=== PATIENT | female | born 1965 | race Caucasian/White ===

== ENCOUNTER 2020-04-14 11:52 | Outpatient (REF) | payer OTHER, SELFPAY ==
[2020-04-14 14:16] LABS: Alanine Aminotransferase 48 U/L (0-31); Albumin Level 4.8 g/dL (3.5-5.0); Alkaline Phosphatase 100 U/L (39-117); Aspartate Amino Transferase 38 U/L (5-31); Bilirubin Direct 0.2 mg/dL (0.0-0.5); Bilirubin Total 0.6 mg/dL (0.0-1.0); Total Protein 7.5 g/dL (6.5-8.0)
[2020-04-14 14:37] LABS: TSH reflex Free T4 3.61 uIU/mL (0.32-4.0); Vitamin D 25-OH Total 42.3 ng/mL (>30)
== END 2020-04-14 11:53 | disposition home or self-care (01) ==
LOC: HO.HMGCLDS 11:52
PROVIDERS: PCP Internal Medicine; Visit Provider Internal Medicine
DX: Z00.00 Encounter for general adult medical examination without abnormal findings (principal); E55.9 Vitamin D deficiency, unspecified; E03.9 Hypothyroidism, unspecified; Z78.0 Asymptomatic menopausal state; I10 Essential (primary) hypertension
CPT/HCPCS: 36415; 80076; 82306; 84443

== ENCOUNTER → 2020-04-23 12:55 | Outpatient (REF) | payer OTHER, SELFPAY ==
--- NOTE | 2020-04-23 13:01 | ECG_ITS ---
Hook-up date: 2020-04-23 13:22:00 Duration: 41:57:00 Test Indications: PALPITATIONS Medications: 50263 QRS complexes 30 Ventricular ectopics which represent <1 % of total QRS comp. 167 Supraventricular ectopics which represent <1 % of total QRS comp. * Paced QRS complexs which represent % of total QRS comp. VENTRICULAR ECTOPY 30 Isolated 0 Bigeminal Cycles 0 Couplets 0 Runs 0 Beats in Runs * Beats LONGEST at * BPM at :: -- * Beats FASTEST at * BPM at :: -- SUPRAVENTRICULAR ECTOPY 96 Isolated 13 Couplets 10 Runs 45 Beats in Runs 7 Beats LONGEST at 131 BPM at 20:16:25 2020-04-23 4 Beats FASTEST at 174 BPM at 04:59:28 2020-04-24 HEART RATES 34 MIN at 00:30:53 2020-04-24 58 AVG 130 MAX at 12:11:51 2020-04-24 LONGEST RR 2.0080 secs at 01:27:42 2020-04-24 S-T LEVELS Channel 1 - 128 mm at 13:22:00 2020-04-23 - 128 mm at 13:22:00 2020-04-23 Channel 2 - 128 mm at 13:22:00 2020-04-23 - 128 mm at 13:22:00 2020-04-23 Channel 3 - 128 mm at 03:24:11 -- - 128 mm at 03:24:11 Basic rhythm Normal sinus rhythm No long pauses Frequent Sinus bradycardia , HR < 60 bpm 67% of total time Rare Premature ventricular complexes Occasional Premature atrial complexes Frequent short bursts of SVE, 4-7 beats s/o of PAT or SVT Patient did not report any symptoms in the diary Referred By: Carol Dewitt Overread By: CHAO MCCONNELL MD
== END ==
LOC: HO.CARD 12:55
PROVIDERS: PCP Internal Medicine; Visit Provider Internal Medicine
DX: R00.2 Palpitations (principal)
CPT/HCPCS: 93225; 93226

== ENCOUNTER 2020-05-21 07:21 | Outpatient (REF) | payer OTHER, SELFPAY ==
[2020-05-21 12:03] LABS: Alanine Aminotransferase 23 U/L (0-31); Aspartate Amino Transferase 33 U/L (5-31)
== END 2020-05-21 07:22 | disposition home or self-care (01) ==
LOC: HO.HMGCLDS 07:21
PROVIDERS: PCP Internal Medicine; Visit Provider Internal Medicine
DX: R74.01 Elevation of levels of liver transaminase levels (principal)
CPT/HCPCS: 36415; 84450; 84460

== ENCOUNTER 2020-08-27 07:33 | Outpatient (REF) | payer OTHER, SELFPAY ==
[2020-08-27 12:08] LABS: TSH reflex Free T4 0.83 uIU/mL (0.32-4.0)
[2020-08-27 12:19] LABS: Alanine Aminotransferase 39 U/L (0-31); Albumin Level 4.4 g/dL (3.5-5.0); Alkaline Phosphatase 99 U/L (39-117); Anion Gap 12 (12-20); Aspartate Amino Transferase 36 U/L (5-31); Bilirubin Total 0.4 mg/dL (0.0-1.0); Blood Urea Nitrogen 16 mg/dL (9-16); Calcium 9.1 mg/dL (8.4-10.2); Carbon Dioxide 27 mmol/L (22-29); Chloride 105 mmol/L (96-108); Estimated Glomerular Filt Rate > 60; Glucose Fasting 83 mg/dL (60-99); Potassium 4.5 mmol/L (3.3-5.1); Sodium 139 mmol/L (135-145); Total Protein 6.8 g/dL (6.5-8.0)
== END 2020-08-27 07:34 | disposition home or self-care (01) ==
LOC: HO.HMGCLDS 07:33
PROVIDERS: PCP Internal Medicine; Visit Provider Internal Medicine
DX: I10 Essential (primary) hypertension (principal); E55.9 Vitamin D deficiency, unspecified; R74.01 Elevation of levels of liver transaminase levels; Z78.0 Asymptomatic menopausal state
CPT/HCPCS: 36415; 80053; 84443

== ENCOUNTER 2021-02-16 11:33 | Outpatient (REF) | payer OTHER, SELFPAY ==
[2021-02-16 12:22] LABS: Influenza A PCR NEGATIVE (Negative); Influenza B PCR NEGATIVE (Negative); Resp Syncy Virus RNA Qual PCR NEGATIVE (Negative); SARS COV2 PCR INHOUSE NEGATIVE (Negative)
== END 2021-02-16 11:34 | disposition home or self-care (01) ==
LOC: HO.LNP 11:33
PROVIDERS: Visit Provider Internal Medicine
DX: R43.9 Unspecified disturbances of smell and taste (principal); Z20.822 Contact with and (suspected) exposure to COVID-19
CPT/HCPCS: 0241U

== ENCOUNTER 2021-04-08 07:21 | Outpatient (REF) | payer OTHER, SELFPAY ==
[2021-04-08 11:31] LABS: Hematocrit 42.7 % (37.0-47.0); Hemoglobin 13.8 g/dl (12.0-16.0); Mean Corpuscular HGB Conc 32.3 g/dl (31.0-35.0); Mean Corpuscular Volume 89.7 fL (80.0-98.0); Platelet Count 138 X10*3/uL (160-400); Red Blood Count 4.76 X10*6/uL (4.20-5.50); Red Cell Distribution Width 13.1 % (11.0-16.0); White Blood Count 5.1 X10*3/uL (4.8-10.8)
[2021-04-08 13:22] LABS: TSH reflex Free T4 0.54 uIU/mL (0.32-4.0); Vitamin D 25-OH Total 36.5 ng/mL (>30)
[2021-04-08 13:39] LABS: Alanine Aminotransferase 31 U/L (0-31); Albumin Level 4.5 g/dL (3.5-5.0); Alkaline Phosphatase 89 U/L (39-117); Anion Gap 11 (12-20); Aspartate Amino Transferase 35 U/L (5-31); Bilirubin Total 0.9 mg/dL (0.0-1.0); Carbon Dioxide 29 mmol/L (22-29); Chloride 101 mmol/L (96-108); Cholesterol 204 mg/dL; Estimated Glomerular Filt Rate > 60; Glucose Fasting 90 mg/dL (60-99); HDL Cholesterol 71 mg/dL; LDL Cholesterol Calculated 123 mg/dl; Sodium 136 mmol/L (135-145); Triglycerides 54 mg/dL
[2021-04-08 14:57] LABS: Blood Urea Nitrogen 15 mg/dL (9-16); Calcium 9.4 mg/dL (8.4-10.2)
== END 2021-04-08 07:22 | disposition home or self-care (01) ==
LOC: HO.HMGCLDS 07:21
PROVIDERS: Visit Provider Internal Medicine
DX: Z00.00 Encounter for general adult medical examination without abnormal findings (principal); E03.9 Hypothyroidism, unspecified; E55.9 Vitamin D deficiency, unspecified; I10 Essential (primary) hypertension; R74.01 Elevation of levels of liver transaminase levels
CPT/HCPCS: 36415; 80053; 80061; 82306; 84443; 85027

== ENCOUNTER 2021-12-04 11:58 | Outpatient (REF) | payer OTHER, SELFPAY ==
--- NOTE | ~2021-12-04 | XR_ITS ---
EXAMINATION: XR CHEST CLINICAL INFORMATION: Fever COMPARISON: None TECHNIQUE: 2 views of the chest were obtained. FINDINGS: No significant abnormality is noted involving the heart, lungs, mediastinum, bony thorax or soft tissues. XR/XR chest 2V IMPRESSION: Unremarkable examination.
[2021-12-04 13:53] LABS: Baso%MD 1.1 %; Eos%MD 0.8 %; Hematocrit 40.1 % (37.0-47.0); IG%MD 0.3 %; Mean Corpuscular HGB Conc 32.4 g/dl (31.0-35.0); Mean Corpuscular Volume 86.4 fL (80.0-98.0); Mono%MD 7.2 %; Neut%MD 62.6 %; Platelet Count 229 X10*3/uL (160-400); Red Blood Count 4.64 X10*6/uL (4.20-5.50); Red Cell Distribution Width 13.2 % (11.0-16.0); White Blood Count 7.8 X10*3/uL (4.8-10.8)
[2021-12-04 14:00] LABS: Appearance Urine Clear; Color Urine Yellow; Glucose Urine UA Negative (Negative); Leukocyte Esterase Urine Negative (Negative); Nitrite Urine Negative (Negative); Specific Gravity - Urine <= 1.005 (1.005-1.025); Urine Blood Negative (Negative); Urine Ketones Negative (Negative); Urine Protein Negative (Neg-Trace)
[2021-12-04 14:03] LABS: Alanine Aminotransferase 70 U/L (0-31); Albumin Level 4.5 g/dL (3.5-5.0); Alkaline Phosphatase 155 U/L (39-117); Anion Gap 16 (12-20); Aspartate Amino Transferase 35 U/L (5-31); Bilirubin Total 0.5 mg/dL (0.0-1.0); Blood Urea Nitrogen 15 mg/dL (9-16); C Reactive Protein 0.19 mg/dL (< or = 0.50); Calcium 9.5 mg/dL (8.4-10.2); Carbon Dioxide 26 mmol/L (22-29); Chloride 101 mmol/L (96-108); Estimated Glomerular Filt Rate > 60; Glucose Random 83 mg/dL (60-115); Potassium 4.1 mmol/L (3.3-5.1); Sodium 139 mmol/L (135-145); Total Protein 7.3 g/dL (6.5-8.0)
[2021-12-04 14:06] LABS: Bacteria Urine None Seen (None Seen); Hyaline Casts Urine 0-2 /LPF (0-2); RBC Urine 0-2 /HPF (0-2); Squamous Epithelial Cell Urine 0-2 /HPF (0-2); WBC Urine 0-5 /HPF (0-5)
[2021-12-04 14:16] LABS: Band Neutrophils Percent 2 % (3-5); Eosinophils Absolute Manual 0.1 X10*3/uL (0.0-0.4); Eosinophils Percent Manual 1 % (0-4); Lymphocytes Absolute Manual 1.8 X10*3/uL (1.2-4.9); Lymphocytes Percent Manual 23 % (20-40); Monocytes Absolute Manual 0.5 X10*3/uL (0.1-1.2); Monocytes Percent Manual 7 % (2-11); Neutrophils Absolute Manual 5.4 X10*3/uL (2.0-8.3); Neutrophils Percent Manual 67 % (45-73)
[2021-12-04 14:17] LABS: Platelet Estimate NORMAL (NORMAL); Platelet Morphology Comment NORMAL; RBC Morphology NORMAL
[2021-12-04 14:28] LABS: Erythrocyte Sedimentation Rate 12 MM/HR (0-20)
[2021-12-07 15:07] LABS: IgA 319 mg/dL (47-310); IgG 915 mg/dL (600-1640); IgM 84 mg/dL (50-300)
[2021-12-07 21:07] LABS: Lyme Abs Screen <0.90 index
[2021-12-10 14:07] LABS: Babesia IgG <1:64 titer (<1:64); Babesia IgM <1:20 titer (<1:20)
[2021-12-15 08:12] LABS: A. Phagocytophilum Ab IgG <1:64 (<1:64); A. Phagocytophilum Ab IgM <1:20 (<1:20); E. Chaffeensis Ab IgG <1:64 (<1:64); E. Chaffeensis Ab IgM <1:20 (<1:20)
== END 2021-12-04 11:59 | disposition home or self-care (01) ==
LOC: HO.HMGCLDS 11:58
PROVIDERS: PCP Internal Medicine; Visit Provider Internal Medicine
DX: R50.9 Fever, unspecified (principal)
CPT/HCPCS: 36415; 71046; 80053; 81001; 82784; 85007; 85027; 85652; 86140; 86334; 86617; 86618; 86666; 86753; 87040; 87086

== ENCOUNTER 2022-01-01 07:28 | Outpatient (REF) | payer OTHER, SELFPAY ==
[2022-01-04 05:00] LABS: HBS Num1 2.05 mIU/mL (0-7.99); HBc Num1 0.07 S/CO (0.00-0.79); HBsAGNum1 0.21 S/CO (0.00-0.99); Hepatitis B Core Antibody Nonreactive (Nonreactive); Hepatitis B Surface Antigen Negative (Negative); ~HepC Num1 0.12 S/CO (0.00-0.79); ~Hepatitis B Surface Antibody NONREACTIVE (Nonreactive); ~Hepatitis C Antibody Nonreactive (Nonreactive)
[2022-01-04 22:51] LABS: Ceruloplasmin 33 mg/dL (18-53)
[2022-01-05 15:47] LABS: Anti Nuclear Antibody Screen POSITIVE (NEGATIVE)
[2022-01-06 13:12] LABS: Liver Kidney Microsomal Ab <=20.0 U (<=20.0)
[2022-01-15 15:16] LABS: A1A Clinical Indication NG; A1A Referring Physician NG
== END 2022-01-01 07:29 | disposition home or self-care (01) ==
LOC: HO.HMGCLDS 07:28
PROVIDERS: PCP Internal Medicine; Visit Provider Internal Medicine
DX: R79.89 Other specified abnormal findings of blood chemistry (principal)
CPT/HCPCS: 36415; 81256; 82104; 82390; 86038; 86039; 86376; 86704; 86706; 86803; 87340

== ENCOUNTER 2022-04-16 07:24 | Outpatient (REF) | payer OTHER, SELFPAY ==
[2022-04-16 12:06] LABS: Hemoglobin 14.3 g/dl (12.0-16.0); Mean Corpuscular HGB Conc 32.5 g/dl (31.0-35.0); Mean Corpuscular Hemoglobin 28.8 pg (27.0-33.0); Mean Corpuscular Volume 88.5 fL (80.0-98.0); Mean Platelet Volume 14.2 fL (9.4-12.3); Platelet Count 152 X10*3/uL (160-400); Red Blood Count 4.97 X10*6/uL (4.20-5.50); Red Cell Distribution Width 13.4 % (11.0-16.0); White Blood Count 6.1 X10*3/uL (4.8-10.8)
[2022-04-16 12:38] LABS: Alanine Aminotransferase 22 U/L (0-31); Albumin Level 4.4 g/dL (3.5-5.0); Alkaline Phosphatase 89 U/L (39-117); Anion Gap 15 (12-20); Aspartate Amino Transferase 26 U/L (5-31); Bilirubin Total 0.7 mg/dL (0.0-1.0); Blood Urea Nitrogen 14 mg/dL (9-16); Calcium 9.1 mg/dL (8.4-10.2); Carbon Dioxide 25 mmol/L (22-29); Chloride 101 mmol/L (96-108); Cholesterol 236 mg/dL; Estimated Glomerular Filt Rate > 60; Glucose Fasting 86 mg/dL (60-99); HDL Cholesterol 79 mg/dL; LDL Cholesterol Calculated 143 mg/dl; Potassium 4.6 mmol/L (3.3-5.1); Sodium 136 mmol/L (135-145); Total Protein 6.9 g/dL (6.5-8.0); Triglycerides 74 mg/dL; Vitamin D 25-OH Total 39.1 ng/mL (>30)
== END 2022-04-16 07:25 | disposition home or self-care (01) ==
LOC: HO.HMGCLDS 07:24
PROVIDERS: PCP Internal Medicine; Visit Provider Internal Medicine
DX: Z00.00 Encounter for general adult medical examination without abnormal findings (principal); E55.9 Vitamin D deficiency, unspecified; I10 Essential (primary) hypertension
CPT/HCPCS: 36415; 80053; 80061; 82306; 84443; 85027

== ENCOUNTER 2022-05-10 07:38 | Outpatient (REF) | payer OTHER, SELFPAY ==
[2022-05-10 12:37] LABS: Anion Gap 12 (12-20); Blood Urea Nitrogen 16 mg/dL (9-16); Calcium 9.4 mg/dL (8.4-10.2); Carbon Dioxide 29 mmol/L (22-29); Chloride 102 mmol/L (96-108); Estimated Glomerular Filt Rate > 60; Glucose Random 67 mg/dL (60-115); Potassium 4.2 mmol/L (3.3-5.1); Sodium 139 mmol/L (135-145)
== END 2022-05-10 07:39 | disposition home or self-care (01) ==
LOC: HO.HMGCLDS 07:38
PROVIDERS: PCP Internal Medicine; Visit Provider Internal Medicine
DX: Z00.00 Encounter for general adult medical examination without abnormal findings (principal)
CPT/HCPCS: 36415; 80048

== ENCOUNTER 2022-06-29 07:39 | Outpatient (REF) | payer OTHER, SELFPAY ==
[2022-06-29 11:56] LABS: Anion Gap 14 (12-20); Blood Urea Nitrogen 18 mg/dL (9-16); Calcium 9.1 mg/dL (8.4-10.2); Carbon Dioxide 26 mmol/L (22-29); Chloride 104 mmol/L (96-108); Estimated Glomerular Filt Rate > 60; Glucose Random 78 mg/dL (60-115); Magnesium 2.1 mg/dL (1.6-2.6); Potassium 4.5 mmol/L (3.3-5.1); Sodium 139 mmol/L (135-145)
== END 2022-06-29 07:40 | disposition home or self-care (01) ==
LOC: HO.HMGCLDS 07:39
PROVIDERS: PCP Internal Medicine; Visit Provider Internal Medicine
DX: E83.42 Hypomagnesemia (principal); E03.9 Hypothyroidism, unspecified; I10 Essential (primary) hypertension; R79.89 Other specified abnormal findings of blood chemistry; E87.1 Hypo-osmolality and hyponatremia
CPT/HCPCS: 36415; 80048; 83735

== ENCOUNTER 2022-10-11 07:22 | Outpatient (REF) | payer OTHER, SELFPAY ==
[2022-10-11 11:54] LABS: MANUAL DIFF FLAG NO
[2022-10-11 12:19] LABS: Basophils Absolute Auto 0.1 X10*3/uL (0.0-0.2); Basophils Percent Auto 0.9 % (0-2); Eosinophils Absolute Auto 0.1 X10*3/uL (0.0-0.4); Eosinophils Percent Auto 1.2 % (0-4); Hemoglobin 13.4 g/dl (12.0-16.0); Imm Gran Abs Auto 0.02 X10*3/uL (0.00-0.03); Imm Gran Pct Auto 0.3 % (0.0-0.4); Lymphocytes Absolute Auto 1.9 X10*3/uL (1.2-4.9); Mean Corpuscular HGB Conc 32.7 g/dl (31.0-35.0); Mean Corpuscular Hemoglobin 28.9 pg (27.0-33.0); Mean Corpuscular Volume 88.6 fL (80.0-98.0); Mean Platelet Volume 14.7 fL (9.4-12.3); Monocytes Absolute Auto 0.6 X10*3/uL (0.1-1.2); Monocytes Percent Auto 8.9 % (2-11); Neutrophils Absolute Auto 4.3 x10*3/uL (2.0-8.3); Neutrophils Percent Auto 61.7 % (45-73); Platelet Count 142 X10*3/uL (160-400); Red Blood Count 4.63 X10*6/uL (4.20-5.50); Red Cell Distribution Width 13.3 % (11.0-16.0); White Blood Count 6.9 X10*3/uL (4.8-10.8)
[2022-10-11 12:46] LABS: Alanine Aminotransferase 53 U/L (0-31); Albumin Level 4.2 g/dL (3.5-5.0); Alkaline Phosphatase 91 U/L (39-117); Anion Gap 11 (12-20); Aspartate Amino Transferase 41 U/L (5-31); Bilirubin Total 0.5 mg/dL (0.0-1.0); Blood Urea Nitrogen 15 mg/dL (9-16); Calcium 9.1 mg/dL (8.4-10.2); Carbon Dioxide 27 mmol/L (22-29); Chloride 106 mmol/L (96-108); Cholesterol 199 mg/dL; Estimated Glomerular Filt Rate > 60; Glucose Fasting 82 mg/dL (60-99); HDL Cholesterol 77 mg/dL; LDL Cholesterol Calculated 114 mg/dl; Potassium 4.4 mmol/L (3.3-5.1); Sodium 140 mmol/L (135-145); Triglycerides 42 mg/dL
== END 2022-10-11 07:23 | disposition home or self-care (01) ==
LOC: HO.HMGCLDS 07:22
PROVIDERS: PCP Internal Medicine; Visit Provider Internal Medicine
DX: E03.9 Hypothyroidism, unspecified (principal); E55.9 Vitamin D deficiency, unspecified; R79.89 Other specified abnormal findings of blood chemistry; I10 Essential (primary) hypertension
CPT/HCPCS: 36415; 80053; 80061; 85025

== ENCOUNTER 2022-10-19 08:27 | Outpatient (AMB) | payer OTHER, SELFPAY ==
[2022-10-19 08:38] VITALS: BP 120/66; PULSE 89; O2SAT 99; BMI 23.3
--- NOTE | 2022-10-19 08:38 | MHC.PC.OV ---
Vital Signs 10/19/22 08:38 Height 5 ft 5 in Weight 140 lb BMI 23.3 BP 120/66 Blood Pressure Location Lt brachial Position Sitting Pulse 89 Pulse Source Pulse Oximeter Pulse Oximetry (%) 99 Oxygen Delivery Method Room Air Intake Visit Reasons: 6M follow up Intake Note: Pt is here today for 6 months follow up visit. Allergies penicillamine Adverse Reaction (Unknown, Verified 10/19/22 08:40) headache, hydrochlorothiazide Adverse Reaction (Verified 10/19/22 08:40) hyponatremia Medication List - Last Reconciled 10/19/22 by Carol Dewitt MD levothyroxine 75 mcg PO DAILY nifedipine ER 60 mg PO DAILY Tobacco use date assessed: 07/09/22 Dental Screening Dental Screen Date: 10/19/22 Did you have a dental visit in the last 12 months?: Yes Did you have a dental problem in the last 6 months where you did not have access to dental care?: No Was dental information given to patient?: Patient has dentist HPI 6M follow up HPI Details Patient presents for the follow-up on hypertension and hyperlipidemia. [facility] Medical History Annual physical exam Chronic anxiety Elevated AST (SGOT) HTN (hypertension) Hypothyroidism Normal breast exam Normal pelvic exam Palpitations Panic attack Postmenopausal Renal angiolipoma Vitamin D deficiency Surgical History H/O colonoscopy Family History Father No problems noted. Mother No problems noted. Sister No problems noted. 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 How often do you have a drink containing alcohol?: Monthly or less 2. How many drinks containing alcohol do you have on a typical day when you are drinking?: 1 or 2 3. How often do you have six or more drinks on one occasion?: Never Total Score: 1 BELEN-7 AMB Questionnaire BELEN-7 Date BELEN - 7 assessed: 04/23/22 Feeling nervous, anxious, or on edge: 0 = Not at all Not being able to stop or control worryin = Not at all Worrying too much about different things: 0 = Not at all Trouble relaxin = Not at all Being so restless that it is hard to sit still: 0 = Not at all Becoming easily annoyed or irritable: 0 = Not at all Feeling afraid as if something awful might happen: 0 = Not at all Total BELEN-7 score (0-4 normal; 5-9 mild; 10-14 moderate; 15-21 severe): 0 Source: Developed by Drs. Yusuf Palacios, Jennifer Rivera, Toi Figueroa and colleagues, with an educational clyde from [employer]. Review of Systems Const All systems reviewed & are unremarkable except as noted in HPI and below Reports no additional complaints Eyes Reports no additional complaints ENT Reports no additional complaints Card Reports no additional complaints Resp Reports no additional complaints GI Reports no additional complaints Reports no additional complaints Physical exam (Primary Care) Vital Signs: Last Vital Signs Pulse 89 10/19/22 08:38 BP 138/66 10/19/22 08:38 Pulse Ox 99 10/19/22 08:38 Oxygen Delivery Method Room Air 10/19/22 08:38 BMI result Body Mass Index 23.3 Tobacco/Smoking Status: Tobacco use Status Tobacco use date assessed 07/09/22 10/19/22 08:43 Patient Tobacco Use Status Former Tobacco user 10/19/22 08:43 e-Cigarette/Vaping Use Never Used 10/19/22 08:43 Thrive Assessment: Date of Thrive Assessment Date Thrive assessed 04/23/22 10/19/22 08:43 Const General: no acute distress HENMT Head: Yes normal to inspection Eyes General: appearance normal, both eyes and all related structures Neck Neck: Yes no lymphadenopathy and Yes supple Resp Effort & Inspection: normal respiratory effort Auscultation: clear to auscultation bilaterally Cardio Rhythm: regular rhythm Heart sounds: S1 normal heart sound present and S2 normal heart sound present Assessment and Plan Assessment & Plan (1) Elevated LFTs: Comment: Borderline, normal liver ultrasound 2020 Code(s): R79.89 - Other specified abnormal findings of blood chemistry Plan: Obtain liver ultrasound and monitor liver function test. Patient was advised to avoid [id number] NSAIDs Tylenol and alcohol follow-up in 6 months with a fasting labs before (2) Renal angiolipoma: Comment: R kidney 08/2020 US, recheck in 09/18 unchanged, benign Code(s): D1 - Benign lipomatous neoplasm of kidney Plan: Check renal ultrasound (3) HTN (hypertension): Code(s): I10 - Essential (primary) hypertension Plan: Continue nifedipine, return for physical in 6 months Orders: Orders US abdomen amador w elastography Today R79.89 - Other specified abnormal findings of blood chemistry US renal BI Today . - Benign lipomatous neoplasm of kidney Comprehensive Terry. Panel Fast 6 Months D17. - Benign lipomatous neoplasm of kidney, E78.5 - Hyperlipidemia, unspecified, I10 - Essential (primary) hypertension, R74.01 - Elevation of levels of liver transaminase levels, R79.89 - Other specified abnormal findings of blood chemistry Lipid Panel 6 Months D17. - Benign lipomatous neoplasm of kidney, E78.5 - Hyperlipidemia, unspecified, I10 - Essential (primary) hypertension, R74.01 - Elevation of levels of liver transaminase levels, R79.89 - Other specified abnormal findings of blood chemistry TSH reflex Free T4 6 Months D17. - Benign lipomatous neoplasm of kidney, E78.5 - Hyperlipidemia, unspecified, I10 - Essential (primary) hypertension, R74.01 - Elevation of levels of liver transaminase levels, R79.89 - Other specified abnormal findings of blood chemistry Complete Blood Count Auto Diff 6 Months D17. - Benign lipomatous neoplasm of kidney, E78.5 - Hyperlipidemia, unspecified, I10 - Essential (primary) hypertension, R74.01 - Elevation of levels of liver transaminase levels, R79.89 - Other specified abnormal findings of blood chemistry Liver Kidney Microsomal Ab 6 Months - Benign lipomatous neoplasm of kidney, E78.5 - Hyperlipidemia, unspecified, I10 - Essential (primary) hypertension, R74.01 - Elevation of levels of liver transaminase levels, R79.89 - Other specified abnormal findings of blood chemistry Hepatitis A,B,C Profile 6 Months - Benign lipomatous neoplasm of kidney, E78.5 - Hyperlipidemia, unspecified, I10 - Essential (primary) hypertension, R74.01 - Elevation of levels of liver transaminase levels, R79.89 - Other specified abnormal findings of blood chemistry Coding Level of Care Code Est Pt Level 3 (48071) Diagnoses Elevated LFTs R7.89 Renal angiolipoma HTN (hypertension) I10
== END 2022-10-19 09:36 | disposition home or self-care (01) ==
PROVIDERS: PCP Internal Medicine; Visit Provider Internal Medicine
DX: R79.89 Other specified abnormal findings of blood chemistry (principal); D17.71 Benign lipomatous neoplasm of kidney; I10 Essential (primary) hypertension
CPT/HCPCS: 99213

== ENCOUNTER 2023-04-22 07:22 | Outpatient (REF) | payer OTHER, SELFPAY ==
[2023-04-22 10:14] LABS: MANUAL DIFF FLAG NO
[2023-04-22 10:25] LABS: Basophils Absolute Auto 0.1 X10*3/uL (0.0-0.2); Basophils Percent Auto 1.3 % (0-2); Eosinophils Absolute Auto 0.1 X10*3/uL (0.0-0.4); Eosinophils Percent Auto 1.3 % (0-4); Hematocrit 42.7 % (37.0-47.0); Hemoglobin 14.1 g/dl (12.0-16.0); Imm Gran Abs Auto 0.01 X10*3/uL (0.00-0.03); Imm Gran Pct Auto 0.2 % (0.0-0.4); Lymphocytes Absolute Auto 2.1 X10*3/uL (1.2-4.9); Lymphocytes Percent Auto 39.3 % (20-40); Mean Corpuscular Hemoglobin 28.8 pg (27.0-33.0); Mean Corpuscular Volume 87.3 fL (80.0-98.0); Mean Platelet Volume 14.2 fL (9.4-12.3); Monocytes Absolute Auto 0.5 X10*3/uL (0.1-1.2); Monocytes Percent Auto 9.4 % (2-11); Neutrophils Absolute Auto 2.5 x10*3/uL (2.0-8.3); Neutrophils Percent Auto 48.5 % (45-73); Platelet Count 178 X10*3/uL (160-400); Red Blood Count 4.89 X10*6/uL (4.20-5.50); Red Cell Distribution Width 12.8 % (11.0-16.0); White Blood Count 5.2 X10*3/uL (4.8-10.8)
[2023-04-22 11:16] LABS: Alanine Aminotransferase 24 U/L (0-31); Albumin Level 4.2 g/dL (3.5-5.0); Alkaline Phosphatase 99 U/L (39-117); Anion Gap 15 (12-20); Aspartate Amino Transferase 27 U/L (5-31); Bilirubin Total 0.4 mg/dL (0.0-1.0); Blood Urea Nitrogen 12 mg/dL (9-16); Calcium 9.2 mg/dL (8.4-10.2); Carbon Dioxide 25 mmol/L (22-29); Chloride 101 mmol/L (96-108); Cholesterol 212 mg/dL (<200); Estimated Glomerular Filt Rate > 60; Glucose Fasting 82 mg/dL (60-99); HDL Cholesterol 72 mg/dL (>40); LDL Cholesterol Calculated 129 mg/dL (<100); Potassium 3.9 mmol/L (3.3-5.1); Sodium 137 mmol/L (135-145); Total Protein 7.2 g/dL (6.5-8.0); Triglycerides 57 mg/dL (<150)
[2023-04-22 11:20] LABS: TSH reflex Free T4 1.15 uIU/mL (0.32-4.0)
[2023-04-22 11:22] LABS: HBS Num1 0.46 mIU/mL (0-7.99); HBsAGNum1 0.66 S/CO (0.00-0.99); Hepatitis A Antibody IgM 0.16 Index (0-0.79); Hepatitis B Core Antibody Nonreactive (Nonreactive); Hepatitis B Surface Antigen Negative (Negative); ~HepC Num1 0.09 S/CO (0.00-0.79); ~Hepatitis A Antibody IgM Nonreactive (Nonreactive); ~Hepatitis B Surface Antibody NONREACTIVE (Nonreactive); ~Hepatitis C Antibody Nonreactive (Nonreactive)
[2023-04-27 05:58] LABS: Liver Kidney Microsomal Ab <=20.0 U (<=20.0)
== END 2023-04-22 07:23 | disposition home or self-care (01) ==
LOC: HO.HMGCLDS 07:22
PROVIDERS: PCP Internal Medicine; Visit Provider Internal Medicine
DX: R74.01 Elevation of levels of liver transaminase levels (principal); I10 Essential (primary) hypertension; D17.71 Benign lipomatous neoplasm of kidney; R79.89 Other specified abnormal findings of blood chemistry; E78.5 Hyperlipidemia, unspecified
CPT/HCPCS: 36415; 80053; 80061; 84443; 85025; 86376; 86704; 86706; 86709; 86803; 87340

== ENCOUNTER 2023-04-29 07:53 | Outpatient (AMB) | payer OTHER, SELFPAY ==
[2023-04-29 07:56] VITALS: BP 136/80; PULSE 58; O2SAT 99; BMI 23.6
--- NOTE | 2023-04-29 07:56 | MHC.PC.OV ---
Vital Signs 04/29/23 07:56 Height 5 ft 5 in Weight 142 lb BMI 23.6 BP 136/80 Blood Pressure Location Lt brachial Position Sitting Pulse 58 Pulse Source Pulse Oximeter Pulse Oximetry (%) 99 Oxygen Delivery Method Room Air Intake Visit Reasons: PE Intake Note: Pt is here today for PE. Allergies penicillamine Adverse Reaction (Unknown, Verified 04/29/23 07:57) headache, hydrochlorothiazide Adverse Reaction (Verified 04/29/23 07:57) hyponatremia Medication List - Last Reconciled 04/29/23 by Carol Dewitt MD levothyroxine 75 mcg PO DAILY nifedipine ER 60 mg PO DAILY nifedipine ER 30 mg PO DAILY Tobacco use date assessed: 04/29/23 Dental Screening Dental Screen Date: 04/29/23 Did you have a dental visit in the last 12 months?: Yes Did you have a dental problem in the last 6 months where you did not have access to dental care?: No Was dental information given to patient?: Patient has dentist HPI PE HPI Details Patient presents for physical. Her was diagnosed with prostate cancer and is going to [place] for 2nd opinion. [facility] Medical History Normal pelvic exam Normal breast exam Renal angiolipoma Elevated AST (SGOT) Palpitations Vitamin D deficiency Postmenopausal Annual physical exam Panic attack Chronic anxiety Hypothyroidism HTN (hypertension) Surgical History H/O colonoscopy Family History Father No problems noted. Mother No problems noted. Sister No problems noted. 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 How often do you have a drink containing alcohol?: Monthly or less 2. How many drinks containing alcohol do you have on a typical day when you are drinking?: 1 or 2 3. How often do you have six or more drinks on one occasion?: Never Total Score: 1 BELEN-7 AMB Questionnaire BELEN-7 Date BELEN - 7 assessed: 04/23/22 Feeling nervous, anxious, or on edge: 0 = Not at all Not being able to stop or control worryin = Not at all Worrying too much about different things: 0 = Not at all Trouble relaxin = Not at all Being so restless that it is hard to sit still: 0 = Not at all Becoming easily annoyed or irritable: 0 = Not at all Feeling afraid as if something awful might happen: 0 = Not at all Total BELEN-7 score (0-4 normal; 5-9 mild; 10-14 moderate; 15-21 severe): 0 Source: Developed by Drs. Yusuf Palacios, Jennifer Rivera, Toi Figueroa and colleagues, with an educational clyde from [employer]. Review of Systems Const All systems reviewed & are unremarkable except as noted in HPI and below Reports no additional complaints Eyes Reports no additional complaints ENT Reports no additional complaints Card Reports no additional complaints Resp Reports no additional complaints GI Reports no additional complaints Reports no additional complaints Physical exam (Primary Care) Vital Signs: Last Vital Signs Pulse 58 04/29/23 07:56 BP 136/80 04/29/23 07:56 Pulse Ox 99 04/29/23 07:56 Oxygen Delivery Method Room Air 04/29/23 07:56 BMI result Body Mass Index 23.6 Tobacco/Smoking Status: Tobacco use Status Tobacco use date assessed 04/29/23 04/29/23 07:59 Patient Tobacco Use Status Former Tobacco user 04/29/23 07:59 e-Cigarette/Vaping Use Never Used 04/29/23 07:59 Thrive Assessment: Date of Thrive Assessment Date Thrive assessed 04/23/22 04/29/23 07:59 Const General: no acute distress HENMT Head: Yes normal to inspection Ears: hearing grossly normal bilaterally General nose exam: Normal external nose present Face and sinus: Yes normal facial exam Mouth: Normal oral and palatal mucosa present Eyes General: appearance normal, both eyes and all related structures Neck Neck: Yes no lymphadenopathy and Yes supple Resp Effort & Inspection: normal respiratory effort Auscultation: clear to auscultation bilaterally Cardio Rhythm: regular rhythm Heart sounds: S1 normal heart sound present and S2 normal heart sound present GI Inspection: Yes normal to inspection Palpation (GI): Soft to palpation Percussion: Yes normal to percussion Auscultation: normal bowel sounds Assessment and Plan Assessment & Plan (1) Hyperlipidemia: Code(s): E78.5 - Hyperlipidemia, unspecified Plan: Continue low-cholesterol diet (2) HTN (hypertension): Code(s): I10 - Essential (primary) hypertension Plan: Increase nifedipine to 90 mg follow-up in 2 months (3) Annual physical exam: Code(s): Z00.00 - Encounter for general adult medical examination without abnormal findings Plan: Well-balanced diet regular physical activity discussed with the patient. She is up-to-date with the mammogram and colonoscopy. Patient will check with her home records when was last time she had DEXA (4) Hypothyroidism: Code(s): E03.9 - Hypothyroidism, unspecified Plan: Continue levothyroxine Medications: New nifedipine ER take with Nifedipine 60 mg 30 mg PO DAILY 90 tabs 1RF Coding Level of Care Code Est Pt Prev Care 40-64y(85864) Diagnoses Hyperlipidemia E78.5 HTN (hypertension) I10 Annual physical exam Z00.00 Hypothyroidism E03.9
== END 2023-04-29 08:32 | disposition home or self-care (01) ==
PROVIDERS: PCP Internal Medicine; Visit Provider Internal Medicine
DX: E78.5 Hyperlipidemia, unspecified (principal); I10 Essential (primary) hypertension; Z00.00 Encounter for general adult medical examination without abnormal findings; E03.9 Hypothyroidism, unspecified
CPT/HCPCS: 99396

== ENCOUNTER 2023-07-14 08:55 | Outpatient (AMB) | payer OTHER, SELFPAY ==
--- NOTE | 2023-07-14 08:58 | MHC.PC.OV ---
Vital Signs 07/14/23 08:59 Height 5 ft 5 in Weight 140 lb BMI 23.3 BP 139/88 Blood Pressure Location Lt brachial Position Sitting Pulse 66 Pulse Source Pulse Oximeter Pulse Oximetry (%) 99 Oxygen Delivery Method Room Air Intake Visit Reasons: Follow Up Intake Note: Pt is here today for a follow up visit on BP. Allergies penicillamine Adverse Reaction (Unknown, Verified 07/14/23 09:01) headache, hydrochlorothiazide Adverse Reaction (Verified 07/14/23 09:01) hyponatremia Medication List - Last Reconciled 07/14/23 by Carol Dewitt MD levothyroxine 75 mcg PO DAILY nifedipine ER 60 mg PO DAILY nifedipine ER 30 mg PO DAILY valsartan 80 mg PO DAILY Tobacco use date assessed: 07/14/23 Dental Screening Dental Screen Date: 04/29/23 HPI Follow Up HPI Details Patient presents for the follow-up of hypertension. She has been under lot of stress related to her diagnosed with prostate CA. Patient increase nifedipine to 90 mg a day but there is no change in her blood pressure readings. She denies headaches chest pain shortness for breath PFSH Medical History Normal pelvic exam Normal breast exam Renal angiolipoma Elevated AST (SGOT) Palpitations Vitamin D deficiency Postmenopausal Annual physical exam Panic attack Chronic anxiety Hypothyroidism HTN (hypertension) Surgical History H/O colonoscopy Family History Father No problems noted. Mother No problems noted. Sister No problems noted. 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 1. Little interest or pleasure in doing things: not at all 2. Feeling down, depressed, or hopeless: not at all 3. Trouble falling or staying asleep, or sleeping too much: not at all 4. Feeling tired or having little energy: not at all 5. Poor appetite or overeating: not at all 6. Feeling bad about yourself - or that you are a failure or have let yourself or your family down: not at all 7. Trouble concentrating on things, such as reading the newspaper or watching television: not at all 8. Moving or speaking so slowly that other people could have noticed. Or the opposite - being so fidgety or restless that you have been moving around a lot more than usual: not at all 9. Thoughts that you would be better off or of hurting yourself in some way: not at all Total score: 0 Depression Screening Interpretation: Negative Depression Screening Done: Yes Source: Developed by Drs. Yusuf Palacios, Jennifer Rivera, Toi Figueroa and colleagues, with an educational clyde from [employer]. Thrive Questionnaire Date Thrive assessed: 04/23/22 BELEN-7 AMB Questionnaire BELEN-7 Date BELEN - 7 assessed: 07/14/23 Feeling nervous, anxious, or on edge: 0 = Not at all Not being able to stop or control worryin = Not at all Worrying too much about different things: 0 = Not at all Trouble relaxin = Not at all Being so restless that it is hard to sit still: 0 = Not at all Becoming easily annoyed or irritable: 0 = Not at all Feeling afraid as if something awful might happen: 0 = Not at all Total BELEN-7 score (0-4 normal; 5-9 mild; 10-14 moderate; 15-21 severe): 0 Source: Developed by Drs. Yusuf Palacios, Jennifer Rivera, Toi Figueroa and colleagues, with an educational clyde from [employer]. Review of Systems Const All systems reviewed & are unremarkable except as noted in HPI and below Reports no additional complaints Eyes Reports no additional complaints ENT Reports no additional complaints Card Reports no additional complaints Resp Reports no additional complaints GI Reports no additional complaints Reports no additional complaints Physical exam (Primary Care) Vital Signs: Last Vital Signs Pulse 66 07/14/23 08:59 Pulse Ox 99 07/14/23 08:59 Oxygen Delivery Method Room Air 05/16/24 08:59 BMI result Body Mass Index 23.3 Tobacco/Smoking Status: Tobacco use Status Tobacco use date assessed 07/14/23 07/14/23 09:04 Patient Tobacco Use Status Former Tobacco user 07/14/23 09:00 e-Cigarette/Vaping Use Never Used 07/14/23 09:00 PHQ-9: PHQ-9 Score PHQ-9: Total score 0 07/14/23 09:08 Depression Screening Interpretation: Negative Thrive Assessment: Date of Thrive Assessment Date Thrive assessed 04/23/22 07/14/23 09:00 Const General: no acute distress HENMT Head: Yes normal to inspection Mouth: Normal oral and palatal mucosa present Eyes General: appearance normal, both eyes and all related structures Resp Effort & Inspection: normal respiratory effort Auscultation: clear to auscultation bilaterally Cardio Rhythm: regular rhythm Heart sounds: S1 normal heart sound present and S2 normal heart sound present Assessment and Plan Assessment & Plan (1) HTN (hypertension): Code(s): I10 - Essential (primary) hypertension Plan: Valsartan 80 mg will be added to 60 mg of nifedipine. Basic metabolic panel will be change in 2 weeks and patient will follow-up in 3 weeks for blood pressure check. Stress management discussed with the patient. She will continue to follow-up with the counseling and declined medications at present. (2) Hypothyroidism: Code(s): E03.9 - Hypothyroidism, unspecified Plan: Continue levothyroxine Orders: Orders Basic Metabolic Panel 2 Weeks I10 - Essential (primary) hypertension Medications: New valsartan 80 mg PO DAILY 30 tabs 1RF Coding Level of Care Code Est Pt Level 3 (96724) Diagnoses HTN (hypertension) I10 Hypothyroidism E03.9
[2023-07-14 08:59] VITALS: BP 139/88; PULSE 66; O2SAT 99; BMI 23.3
== END 2023-07-14 09:38 | disposition home or self-care (01) ==
PROVIDERS: PCP Internal Medicine; Visit Provider Internal Medicine
DX: I10 Essential (primary) hypertension (principal); E03.9 Hypothyroidism, unspecified
CPT/HCPCS: 99213

== ENCOUNTER 2023-07-28 07:50 | Outpatient (REF) | payer OTHER, SELFPAY ==
[2023-07-28 11:11] LABS: Anion Gap 14 (12-20); Blood Urea Nitrogen 18 mg/dL (9-16); Calcium 8.9 mg/dL (8.4-10.2); Carbon Dioxide 27 mmol/L (22-29); Chloride 104 mmol/L (96-108); Estimated Glomerular Filt Rate > 60; Glucose Random 65 mg/dL (60-115); Potassium 4.2 mmol/L (3.3-5.1); Sodium 141 mmol/L (135-145)
== END 2023-07-28 07:51 | disposition home or self-care (01) ==
LOC: HO.HMGCLDS 07:50
PROVIDERS: PCP Internal Medicine; Visit Provider Internal Medicine
DX: I10 Essential (primary) hypertension (principal)
CPT/HCPCS: 36415; 80048

== ENCOUNTER 2023-08-03 07:43 | Outpatient (AMB) | payer OTHER, SELFPAY ==
[2023-08-03 08:06] VITALS: BP 124/78; PULSE 90; O2SAT 99; BMI 23.0
--- NOTE | 2023-08-03 08:06 | A.OFFPC_ITS ---
Vital Signs 08/03/23 08:06 Height 5 ft 5 in Weight 138 lb BMI 23.0 BP 124/78 Blood Pressure Location Rt brachial Position Sitting Pulse 90 Pulse Source Pulse Oximeter Pulse Oximetry (%) 99 Oxygen Delivery Method Room Air Intake Visit Reasons: 3 week follow up Intake Note: Pt is here today for 3 weeks follow up visit on BP. Allergies penicillamine Adverse Reaction (Unknown, Verified 08/03/23 08:10) headache, hydrochlorothiazide Adverse Reaction (Verified 08/03/23 08:10) hyponatremia Medication List - Last Reconciled 08/03/23 by Carol Dewitt MD levothyroxine 75 mcg PO DAILY nifedipine ER 60 mg PO DAILY nifedipine ER 30 mg PO DAILY valsartan 80 mg PO DAILY Tobacco use date assessed: 07/14/23 Dental Screening Dental Screen Date: 04/29/23 HPI 3 week follow up HPI Details PATIENT PRESENTS FOR THE FOLLOW-UP ON HYPERTENSION BETTER CONTROLLED ON CURRENT MEDICATIONS. Hypothyroidism stable on levothyroxine. Patient has been under stress related to her who was diagnosed with prostate cancer and started radiation and hormonal therapy. [facility] Medical History Normal pelvic exam Normal breast exam Renal angiolipoma Elevated AST (SGOT) Palpitations Vitamin D deficiency Postmenopausal Annual physical exam Panic attack Chronic anxiety Hypothyroidism HTN (hypertension) Surgical History H/O colonoscopy Family History Father No problems noted. Mother No problems noted. Sister No problems noted. 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 Yusuf Palacios, JenniferToi Au and colleagues, with an educational clyde from [email or web address]. Review of Systems Const All systems reviewed & are unremarkable except as noted in HPI and below ENT Reports no additional complaints Card Reports no additional complaints Resp Reports no additional complaints GI Reports no additional complaints Reports no additional complaints Physical exam (Primary Care) Vital Signs: Last Vital Signs Pulse 90 08/03/23 08:06 BP 124/78 08/03/23 08:06 Pulse Ox 99 08/03/23 08:06 Oxygen Delivery Method Room Air 08/03/23 08:06 BMI result Body Mass Index 23.0 Tobacco/Smoking Status: Tobacco use Status Tobacco use date assessed 07/14/23 08/03/23 08:06 Patient Tobacco Use Status Former Tobacco user 08/03/23 08:06 e-Cigarette/Vaping Use Never Used 08/03/23 08:06 Thrive Assessment: Date of Thrive Assessment Date Thrive assessed 04/23/22 08/03/23 08:06 Const General: no acute distress HENMT Head: Yes normal to inspection Ears: hearing grossly normal bilaterally Throat: Yes posterior oropharynx normal Neck Neck: Yes supple Resp Effort & Inspection: normal respiratory effort Auscultation: clear to auscultation bilaterally Cardio Rhythm: regular rhythm Heart sounds: S1 normal heart sound present and S2 normal heart sound present Assessment and Plan Assessment & Plan (1) Hypothyroidism: Code(s): E03.9 - Hypothyroidism, unspecified Plan: Continue levothyroxine (2) Vitamin D deficiency: Code(s): E55.9 - Vitamin D deficiency, unspecified Plan: Continue vitamin D supplement (3) Hyperlipidemia: Code(s): E78.5 - Hyperlipidemia, unspecified Plan: Continue low-cholesterol diet and regular exercise (4) HTN (hypertension): Code(s): I10 - Essential (primary) hypertension Plan: Continue current medications follow-up in 3 months with a fasting labs Orders: Orders Lipid Panel Today E03.9 - Hypothyroidism, unspecified, E55.9 - Vitamin D deficiency, unspecified, E78.5 - Hyperlipidemia, unspecified TSH reflex Free T4 Today E03.9 - Hypothyroidism, unspecified, E55.9 - Vitamin D deficiency, unspecified, E78.5 - Hyperlipidemia, unspecified Comprehensive Met. Panel Today E03.9 - Hypothyroidism, unspecified, E55.9 - Vitamin D deficiency, unspecified, E78.5 - Hyperlipidemia, unspecified Complete Blood Count Auto Diff Today E03.9 - Hypothyroidism, unspecified, E55.9 - Vitamin D deficiency, unspecified, E78.5 - Hyperlipidemia, unspecified Medications: Discontinued nifedipine ER take with Nifedipine 60 mg Discontinued Reason: Doctor's Order 30 mg PO DAILY 90 tabs 1RF Coding Level of Care Code Est Pt Level 4 (52349) Complex EM visit Add On G2211 Diagnoses Hypothyroidism E03.9 Vitamin D deficiency E55.9 Hyperlipidemia E78.5 HTN (hypertension) I10
== END 2023-08-03 08:54 | disposition home or self-care (01) ==
PROVIDERS: PCP Internal Medicine; Visit Provider Internal Medicine
DX: E03.9 Hypothyroidism, unspecified (principal); E55.9 Vitamin D deficiency, unspecified; E78.5 Hyperlipidemia, unspecified; I10 Essential (primary) hypertension
CPT/HCPCS: 99214; G2211

== ENCOUNTER 2023-10-26 07:45 | Outpatient (REF) | payer OTHER, SELFPAY ==
[2023-10-26 10:09] LABS: MANUAL DIFF FLAG NO
[2023-10-26 10:15] LABS: Basophils Absolute Auto 0.1 X10*3/uL (0.0-0.2); Basophils Percent Auto 1.3 % (0-2); Eosinophils Absolute Auto 0.1 X10*3/uL (0.0-0.4); Eosinophils Percent Auto 1.7 % (0-4); Hematocrit 39.6 % (37.0-47.0); Hemoglobin 13.3 g/dl (12.0-16.0); Imm Gran Abs Auto 0.01 X10*3/uL (0.00-0.03); Imm Gran Pct Auto 0.2 % (0.0-0.4); Lymphocytes Absolute Auto 1.7 X10*3/uL (1.2-4.9); Lymphocytes Percent Auto 35.2 % (20-40); Mean Corpuscular HGB Conc 33.6 g/dl (31.0-35.0); Mean Corpuscular Hemoglobin 29.6 pg (27.0-33.0); Mean Corpuscular Volume 88.2 fL (80.0-98.0); Mean Platelet Volume 14.8 fL (9.4-12.3); Monocytes Absolute Auto 0.5 X10*3/uL (0.1-1.2); Monocytes Percent Auto 9.6 % (2-11); Neutrophils Absolute Auto 2.5 x10*3/uL (2.0-8.3); Platelet Count 144 X10*3/uL (160-400); Red Blood Count 4.49 X10*6/uL (4.20-5.50); Red Cell Distribution Width 13.1 % (11.0-16.0); White Blood Count 4.8 X10*3/uL (4.8-10.8)
[2023-10-26 10:46] LABS: Alanine Aminotransferase 33 U/L (0-31); Albumin Level 4.3 g/dL (3.5-5.0); Alkaline Phosphatase 82 U/L (39-117); Anion Gap 11 (12-20); Aspartate Amino Transferase 34 U/L (5-31); Bilirubin Total 0.6 mg/dL (0.0-1.0); Blood Urea Nitrogen 15 mg/dL (9-16); Carbon Dioxide 27 mmol/L (22-29); Chloride 102 mmol/L (96-108); Cholesterol 207 mg/dL (<200); Estimated Glomerular Filt Rate > 60; Glucose Random 85 mg/dL (60-115); HDL Cholesterol 74 mg/dL (>40); LDL Cholesterol Calculated 122 mg/dL (<100); Potassium 4.4 mmol/L (3.3-5.1); Sodium 136 mmol/L (135-145); Total Protein 6.9 g/dL (6.5-8.0); Triglycerides 56 mg/dL (<150)
[2023-10-26 11:05] LABS: TSH reflex Free T4 0.68 uIU/mL (0.32-4.0)
== END 2023-10-26 07:46 | disposition home or self-care (01) ==
LOC: HO.HMGCLDS 07:45
PROVIDERS: PCP Internal Medicine; Visit Provider Internal Medicine
DX: E78.5 Hyperlipidemia, unspecified (principal); E03.9 Hypothyroidism, unspecified; E55.9 Vitamin D deficiency, unspecified
CPT/HCPCS: 36415; 80053; 80061; 84443; 85025

== ENCOUNTER 2023-11-15 07:42 | Outpatient (AMB) | payer OTHER, SELFPAY ==
[2023-11-15 07:49] VITALS: BP 125/80; PULSE 74; O2SAT 100; BMI 23.1
--- NOTE | 2023-11-15 07:49 | MHC.PC.OV ---
Vital Signs 11/15/23 07:49 Height 5 ft 5 in Weight 139 lb BMI 23.1 BP 125/80 Blood Pressure Location Lt brachial Position Sitting Pulse 74 Pulse Source Pulse Oximeter Pulse Oximetry (%) 100 Oxygen Delivery Method Room Air Intake Visit Reasons: Follow up on BP pt needed early appt Intake Note: Pt is here today for her f/u b/p Allergies penicillamine Adverse Reaction (Unknown, Verified 11/15/23 07:50) headache, hydrochlorothiazide Adverse Reaction (Verified 11/15/23 07:50) hyponatremia Medication List - Last Reconciled 11/15/23 by Carol Dewitt MD levothyroxine 75 mcg PO DAILY nifedipine ER 30 mg PO DAILY valsartan 80 mg PO DAILY Tobacco use date assessed: 11/15/23 Dental Screening Dental Screen Date: 11/15/23 Did you have a dental visit in the last 12 months?: Yes Did you have a dental problem in the last 6 months where you did not have access to dental care?: No Was dental information given to patient?: Patient has dentist HPI Follow up on BP pt needed early appt HPI Details Pt presents for f/u HTN. Pt's brother we will be starting treatment for metastatic prostate cancer in [place] and patient has been under lot of stress. She reports episodes of slight lightheadedness when standing up but otherwise denies chest pain, shortness or breath, palpitations. Patient walks 10 miles every day with her new dog. [facility] Medical History (Updated 11/15/23 @ 08:37 by Carol Dewitt MD) Normal pelvic exam Normal breast exam Renal angiolipoma Elevated AST (SGOT) Palpitations Vitamin D deficiency Postmenopausal Annual physical exam Panic attack Chronic anxiety Hypothyroidism HTN (hypertension) Surgical History H/O colonoscopy Family History Father No problems noted. Mother No problems noted. Sister No problems noted. 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 1. Little interest or pleasure in doing things: not at all 2. Feeling down, depressed, or hopeless: not at all 3. Trouble falling or staying asleep, or sleeping too much: not at all 4. Feeling tired or having little energy: not at all 5. Poor appetite or overeating: not at all 6. Feeling bad about yourself - or that you are a failure or have let yourself or your family down: not at all 7. Trouble concentrating on things, such as reading the newspaper or watching television: not at all 8. Moving or speaking so slowly that other people could have noticed. Or the opposite - being so fidgety or restless that you have been moving around a lot more than usual: not at all 9. Thoughts that you would be better off or of hurting yourself in some way: not at all Total score: 0 Depression Screening Interpretation: Negative Depression Screening Done: Yes 79684 - PHQ-9 Billing: Yes Source: Developed by Drs. Yusuf Palacios, Jennifer Rivera, Toi Figueroa and colleagues, with an educational cylde from [employer]. Thrive Questionnaire Date Thrive assessed: 11/15/23 I am a: Patient What is your living situation today?: I have a steady place to live Within the past 12 months, did the food you bought not last and you didn't have the money to get more?: Never true Within the past 12 months, did you worry whether your food would run out before you got money to buy more?: Never true Do you have trouble paying for medicines?: No Do you have trouble getting transportation to medical appointments?: No Do you have trouble paying your heating and electricity bill?: No Do you have trouble taking care of your child, family member or friend?: No Do you have trouble with day-to-day activities such as bathing, preparing meals, shopping, managing finances, etc.?: No Are you currently unemployed and looking for a job?: No Are you interested in more education?: No Please select the resources that you would like help with: None Currently or been in a relationship where the following occur: No concerns reported THRIVE Score: 0 AUDIT C Alcohol Use Questionnaire (AUDIT-C) 1. How often do you have a drink containing alcohol?: Monthly or less 2. How many drinks containing alcohol do you have on a typical day when you are drinking?: 1 or 2 3. How often do you have six or more drinks on one occasion?: Never Total Score: 1 BELEN-7 AMB Questionnaire BELEN-7 Date BELEN - 7 assessed: 11/15/23 Feeling nervous, anxious, or on edge: 0 = Not at all Not being able to stop or control worryin = Not at all Worrying too much about different things: 0 = Not at all Trouble relaxin = Not at all Being so restless that it is hard to sit still: 0 = Not at all Becoming easily annoyed or irritable: 0 = Not at all Feeling afraid as if something awful might happen: 0 = Not at all Total BELEN-7 score (0-4 normal; 5-9 mild; 10-14 moderate; 15-21 severe): 0 Source: Developed by Drs. Yusuf Palacios, Jennifer Rivera, Toi Figueroa and colleagues, with an educational clyde from [employer]. Review of Systems Const All systems reviewed & are unremarkable except as noted in HPI and below Eyes Reports no additional complaints ENT Reports no additional complaints Card Reports no additional complaints Resp Reports no additional complaints GI Reports no additional complaints Reports no additional complaints Physical exam (Primary Care) Vital Signs: Last Vital Signs Pulse 74 11/15/23 07:49 BP 158/80 H 11/15/23 07:49 Pulse Ox 100 11/15/23 07:49 Oxygen Delivery Method Room Air 11/15/23 07:49 BMI result Body Mass Index 23.1 Tobacco/Smoking Status: Tobacco use Status Tobacco use date assessed 11/15/23 11/15/23 07:54 Patient Tobacco Use Status Former Tobacco user 11/15/23 07:54 e-Cigarette/Vaping Use Never Used 11/15/23 07:54 PHQ-9: PHQ-9 Score PHQ-9: Total score 0 11/15/23 07:54 Depression Screening Interpretation: Negative Thrive Assessment: Date of Thrive Assessment Date Thrive assessed 11/15/23 11/15/23 07:54 Currently or been in a relationship where the following occur: No concerns reported Const General: no acute distress HENMT General nose exam: Normal external nose present Neck Neck: Yes no lymphadenopathy and Yes supple Resp Effort & Inspection: normal respiratory effort Auscultation: clear to auscultation bilaterally Cardio Rhythm: regular rhythm Heart sounds: S1 normal heart sound present and S2 normal heart sound present GI Inspection: Yes normal to inspection Palpation (GI): Soft to palpation Assessment and Plan Assessment & Plan (1) HTN (hypertension): Code(s): I10 - Essential (primary) hypertension Plan: Continue current medications, (2) Chronic anxiety: Code(s): F41.9 - Anxiety disorder, unspecified Plan: Stress management and mindfulness discussed with the patient. She will try sertraline start with 25 mg for the 1st week then increase to 50 mg. Follow-up in 1 month Medications: New sertraline 1/2 tabl qd for 1 week, then 1 tabl qd 50 mg PO DAILY 30 tabs 2RF Coding Level of Care Code Est Pt Level 3 (16684) Diagnoses HTN (hypertension) I10 Chronic anxiety F41.9
== END 2023-11-15 08:41 | disposition home or self-care (01) ==
PROVIDERS: PCP Internal Medicine; Visit Provider Internal Medicine
DX: I10 Essential (primary) hypertension (principal); F41.9 Anxiety disorder, unspecified

== ENCOUNTER → 2023-11-15 07:42 | Outpatient (BNVA) | payer OTHER, SELFPAY | PROVIDERS: PCP Internal Medicine; Visit Provider Internal Medicine | DX: I10 Essential (primary) hypertension (principal); F41.9 Anxiety disorder, unspecified; Z79.899 Other long term (current) drug therapy | CPT/HCPCS: 96127 ==

== ENCOUNTER 2023-12-16 09:53 | Outpatient (AMB) | payer OTHER, SELFPAY ==
--- NOTE | 2023-12-16 09:55 | MHC.PC.OV ---
Vital Signs 12/16/23 09:56 Height 5 ft 5 in Weight 138 lb BMI 23.0 BP 138/86 Blood Pressure Location Rt brachial Position Sitting Pulse 60 Pulse Source Pulse Oximeter Pulse Oximetry (%) 98 Oxygen Delivery Method Room Air Intake Visit Reasons: 1 month BP follow up Intake Note: pt is here for BP follow up Client Director Required: No Accompanied by: Self / Same As Patient Allergies penicillamine Adverse Reaction (Unknown, Verified 12/16/23 09:56) headache, hydrochlorothiazide Adverse Reaction (Verified 12/16/23 09:56) hyponatremia Medication List - Last Reconciled 12/16/23 by Carol Dewitt MD levothyroxine 75 mcg PO DAILY nifedipine ER 30 mg PO DAILY sertraline 50 mg PO DAILY valsartan 80 mg PO DAILY Tobacco use date assessed: 11/15/23 Dental Screening Dental Screen Date: 11/15/23 HPI 1 month BP follow up HPI Details Patient presents for the follow-up of hypertension hypothyroidism chronic anxiety better on half a tablet of sertraline PFSH Medical History Normal pelvic exam Normal breast exam Renal angiolipoma Elevated AST (SGOT) Palpitations Vitamin D deficiency Postmenopausal Annual physical exam Panic attack Chronic anxiety Hypothyroidism HTN (hypertension) Surgical History H/O colonoscopy Family History Father No problems noted. Mother No problems noted. Sister No problems noted. 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 Current occupational exposures/hazards: No Cognitive needs: No Hearing needs: Yes Vision needs: Yes Questionnaire Thrive Questionnaire Date Thrive assessed: 11/06/23 I am a: Patient What is your living situation today?: I have a steady place to live Within the past 12 months, did the food you bought not last and you didn't have the money to get more?: Never true Within the past 12 months, did you worry whether your food would run out before you got money to buy more?: Never true Do you have trouble paying for medicines?: No Do you have trouble getting transportation to medical appointments?: No Do you have trouble paying your heating and electricity bill?: No Do you have trouble taking care of your child, family member or friend?: No Do you have trouble with day-to-day activities such as bathing, preparing meals, shopping, managing finances, etc.?: No Are you currently unemployed and looking for a job?: No Are you interested in more education?: No Please select the resources that you would like help with: None Currently or been in a relationship where the following occur: No concerns reported THRIVE Score: 0 BELEN-7 AMB Questionnaire BELEN-7 Date BELEN - 7 assessed: 11/15/23 Source: Developed by Drs. Yusuf Palacios, Jennifer Rivera, Toi Figueroa and colleagues, with an educational clyde from [employer]. Review of Systems Card Reports no additional complaints Resp Reports no additional complaints GI Reports no additional complaints Reports no additional complaints Physical exam (Primary Care) Vital Signs: Last Vital Signs Pulse 60 12/16/23 09:56 BP 138/86 12/16/23 09:56 Pulse Ox 98 12/16/23 09:56 Oxygen Delivery Method Room Air 12/16/23 09:56 BMI result Body Mass Index 23.0 Tobacco/Smoking Status: Tobacco use Status Tobacco use date assessed 11/15/23 12/16/23 09:59 Patient Tobacco Use Status Former Tobacco user 12/16/23 09:59 e-Cigarette/Vaping Use Never Used 12/16/23 09:59 Thrive Assessment: Date of Thrive Assessment Date Thrive assessed 11/06/23 12/16/23 09:59 Currently or been in a relationship where the following occur: No concerns reported Const General: no acute distress HENMT Head: Yes normal to inspection Neck Neck: Yes no lymphadenopathy and Yes supple Resp Effort & Inspection: normal respiratory effort Auscultation: clear to auscultation bilaterally Cardio Rhythm: regular rhythm Heart sounds: S1 normal heart sound present and S2 normal heart sound present Coding Level of Care Code Est Pt Level 4 (75748) Diagnoses Hypothyroidism E03.9 HTN (hypertension) I10 Chronic anxiety F41.9 Assessment & Plan Assessment & Plan (1) Hypothyroidism: Code(s): E03.9 - Hypothyroidism, unspecified Category: Medical Plan: Continue levothyroxine (2) HTN (hypertension): Code(s): I10 - Essential (primary) hypertension Category: Medical Plan: Continue current medications low-sodium diet regular exercise discussed with the patient (3) Chronic anxiety: Code(s): F41.9 - Anxiety disorder, unspecified Category: Medical Plan: Continue 25 mg of sertraline
[2023-12-16 09:56] VITALS: BP 138/86; PULSE 60; O2SAT 98; BMI 23.0
== END 2023-12-16 11:42 | disposition home or self-care (01) ==
PROVIDERS: PCP Internal Medicine; Visit Provider Internal Medicine
DX: E03.9 Hypothyroidism, unspecified (principal); I10 Essential (primary) hypertension; F41.9 Anxiety disorder, unspecified

== ENCOUNTER → 2023-12-16 09:53 | Outpatient (BNVA) | payer OTHER, SELFPAY | PROVIDERS: PCP Internal Medicine; Visit Provider Internal Medicine ==

== ENCOUNTER 2024-05-14 07:33 | Outpatient (REF) | payer OTHER, SELFPAY ==
[2024-05-14 10:23] LABS: MANUAL DIFF FLAG NO
[2024-05-14 10:37] LABS: Basophils Absolute Auto 0.1 X10*3/uL (0.0-0.2); Basophils Percent Auto 1.8 % (0-2); Eosinophils Absolute Auto 0.2 X10*3/uL (0.0-0.4); Hematocrit 39.8 % (37.0-47.0); Hemoglobin 13.4 g/dl (12.0-16.0); Imm Gran Abs Auto 0.01 X10*3/uL (0.00-0.03); Imm Gran Pct Auto 0.2 % (0.0-0.4); Lymphocytes Absolute Auto 1.8 X10*3/uL (1.2-4.9); Lymphocytes Percent Auto 35.2 % (20-40); Mean Corpuscular HGB Conc 33.7 g/dl (31.0-35.0); Mean Platelet Volume 14.5 fL (9.4-12.3); Monocytes Absolute Auto 0.5 X10*3/uL (0.1-1.2); Monocytes Percent Auto 10.1 % (2-11); Neutrophils Absolute Auto 2.5 x10*3/uL (2.0-8.3); Neutrophils Percent Auto 49.7 % (45-73); Platelet Count 143 X10*3/uL (160-400); Red Blood Count 4.47 X10*6/uL (4.20-5.50); Red Cell Distribution Width 13.1 % (11.0-16.0); White Blood Count 5.1 X10*3/uL (4.8-10.8)
[2024-05-14 12:24] LABS: Alanine Aminotransferase 28 U/L (0-31); Alkaline Phosphatase 68 U/L (39-117); Anion Gap 11 (12-20); Aspartate Amino Transferase 33 U/L (5-31); Bilirubin Total 0.5 mg/dL (0.0-1.0); Blood Urea Nitrogen 16 mg/dL (9-16); Calcium 8.5 mg/dL (8.4-10.2); Carbon Dioxide 26 mmol/L (22-29); Chloride 105 mmol/L (96-108); Cholesterol 200 mg/dL (<200); Estimated Glomerular Filt Rate > 60; Glucose Fasting 74 mg/dL (60-99); HDL Cholesterol 70 mg/dL (>40); Iron 103 mcg/dL (30-160); LDL Cholesterol Calculated 119 mg/dL (<100); Percent Iron Saturation 38 % (15-50); Potassium 4.1 mmol/L (3.3-5.1); Sodium 138 mmol/L (135-145); TSH reflex Free T4 0.65 uIU/mL (0.32-4.0); Total Iron Binding Capacity 272 mcg/dL (228-428); Total Protein 6.8 g/dL (6.5-8.0); Triglycerides 56 mg/dL (<150); Unsaturated Iron Binding 169 ug/dL; Vitamin D 25-OH Total 53.6 ng/mL (>30)
[2024-05-16 10:58] LABS: Mitochondrial Antibodies NEGATIVE (NEGATIVE)
== END 2024-05-14 07:34 | disposition home or self-care (01) ==
LOC: HO.HMGCLDS 07:33
PROVIDERS: PCP Internal Medicine; Visit Provider Internal Medicine
DX: R79.89 Other specified abnormal findings of blood chemistry (principal); I10 Essential (primary) hypertension; E55.9 Vitamin D deficiency, unspecified
CPT/HCPCS: 36415; 80053; 80061; 82306; 83540; 84443; 85025; 86381

== ENCOUNTER 2024-05-18 08:31 | Outpatient (AMB) | payer OTHER, SELFPAY ==
--- NOTE | 2024-05-18 08:33 | A.OFFPC_ITS ---
Vital Signs 05/18/24 08:34 Height 5 ft 5 in Weight 141 lb BMI 23.5 BP 138/80 Blood Pressure Location Lt brachial Position Sitting Respiration 18 Pulse 52 Pulse Source Pulse Oximeter Temp 98.5 F Temp Source Oral Pulse Oximetry (%) 98 Oxygen Delivery Method Room Air Intake Visit Reasons: PE Intake Note: Pt is here today for PE. Allergies penicillamine Adverse Reaction (Unknown, Verified 05/18/24 08:36) headache, hydrochlorothiazide Adverse Reaction (Verified 05/18/24 08:36) hyponatremia Medication List - Last Reconciled 05/18/24 by Carol Dewitt MD levothyroxine 75 mcg PO DAILY nifedipine ER 30 mg PO DAILY ProAir RespiClick 90 mcg/actuation (albuterol sulfate) 2 inhalations inhalation Q6H PRN NS sertraline 25 mg PO DAILY valsartan 80 mg PO DAILY Tobacco use date assessed: 05/18/24 Dental Screening Dental Screen Date: 05/18/24 Did you have a dental visit in the last 12 months?: Yes Did you have a dental problem in the last 6 months where you did not have access to dental care?: No Was dental information given to patient?: Patient has dentist HPI PE HPI Details Patient presents for physical. She reports episodes of wheezing when exercising or hiking since she had a cold a month ago. Patient also reports feel more congested since she adopted a dog a month ago. Patient is allergic to dogs but does not allow the dog to sleep in her bedroom. Patient denies nocturnal shortness or breath, wheezing or coughing [facility] Medical History (Updated 05/18/24 @ 09:45 by Carol Dewitt MD) Normal pelvic exam Normal breast exam Renal angiolipoma Elevated AST (SGOT) Palpitations Vitamin D deficiency Postmenopausal Annual physical exam Panic attack Chronic anxiety Hypothyroidism HTN (hypertension) Surgical History (Updated 05/18/24 @ 09:41 by Carol Dewitt MD) H/O colonoscopy Family History Father No problems noted. Mother No problems noted. Sister No problems noted. 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 1. Little interest or pleasure in doing things: not at all 2. Feeling down, depressed, or hopeless: not at all 3. Trouble falling or staying asleep, or sleeping too much: not at all 4. Feeling tired or having little energy: not at all 5. Poor appetite or overeating: not at all 6. Feeling bad about yourself - or that you are a failure or have let yourself or your family down: not at all 7. Trouble concentrating on things, such as reading the newspaper or watching television: not at all 8. Moving or speaking so slowly that other people could have noticed. Or the opposite - being so fidgety or restless that you have been moving around a lot more than usual: not at all 9. Thoughts that you would be better off or of hurting yourself in some way: not at all Total score: 0 Depression Screening Interpretation: Negative Depression Screening Done: Yes 67938 - PHQ-9 Billing: Yes Source: Developed by Drs. Yusuf Palacios, Jennifer Rivera, Toi Figueroa and colleagues, with an educational clyde from [employer]. Thrive Questionnaire Date Thrive assessed: 05/18/24 I am a: Patient What is your living situation today?: I have a steady place to live Within the past 12 months, did the food you bought not last and you didn't have the money to get more?: Never true Within the past 12 months, did you worry whether your food would run out before you got money to buy more?: Never true Do you have trouble paying for medicines?: No Do you have trouble getting transportation to medical appointments?: No Do you have trouble paying your heating and electricity bill?: No Do you have trouble taking care of your child, family member or friend?: No Do you have trouble with day-to-day activities such as bathing, preparing meals, shopping, managing finances, etc.?: No Are you currently unemployed and looking for a job?: No Are you interested in more education?: No Please select the resources that you would like help with: None Currently or been in a relationship where the following occur: No concerns reported THRIVE Score: 0 AUDIT C Alcohol Use Questionnaire (AUDIT-C) 1. How often do you have a drink containing alcohol?: Monthly or less 2. How many drinks containing alcohol do you have on a typical day when you are drinking?: 1 or 2 3. How often do you have six or more drinks on one occasion?: Never Total Score: 1 BELEN-7 AMB Questionnaire BELEN-7 Date BELEN - 7 assessed: 05/18/24 Feeling nervous, anxious, or on edge: 0 = Not at all Not being able to stop or control worryin = Not at all Worrying too much about different things: 0 = Not at all Trouble relaxin = Not at all Being so restless that it is hard to sit still: 0 = Not at all Becoming easily annoyed or irritable: 0 = Not at all Feeling afraid as if something awful might happen: 0 = Not at all Total BELEN-7 score (0-4 normal; 5-9 mild; 10-14 moderate; 15-21 severe): 0 Source: Developed by Drs. Yusuf Palacios, Jennifer Rivera, Toi Figueroa and colleagues, with an educational clyde from [employer]. BELEN-7 Assessment Billing BELEN-7 Assessment Tool: BELEN-7 Assessment 49063 Review of Systems Const All systems reviewed & are unremarkable except as noted in HPI and below Eyes Reports no additional complaints ENT Reports no additional complaints Card Reports no additional complaints Resp Reports no additional complaints GI Reports no additional complaints Reports no additional complaints Physical exam (Primary Care) Vital Signs: Last Vital Signs Temp 98.5 F 05/18/24 08:34 Pulse 52 05/18/24 08:34 Resp 18 05/18/24 08:34 BP 138/80 05/18/24 08:34 Pulse Ox 98 05/18/24 08:34 Oxygen Delivery Method Room Air 05/18/24 08:34 BMI result Body Mass Index 23.5 Tobacco/Smoking Status: Tobacco use Status Tobacco use date assessed 05/18/24 05/18/24 08:36 Patient Tobacco Use Status Former Tobacco user 05/18/24 08:36 e-Cigarette/Vaping Use Never Used 05/18/24 08:36 PHQ-9: PHQ-9 Score PHQ-9: Total score 0 05/18/24 08:42 Depression Screening Interpretation: Negative Thrive Assessment: Date of Thrive Assessment Date Thrive assessed 05/18/24 05/18/24 08:42 Currently or been in a relationship where the following occur: No concerns reported Const General: no acute distress HENMT Head: Yes normal to inspection General nose exam: Normal external nose present Face and sinus: Yes normal facial exam Throat: Yes posterior oropharynx normal Eyes General: appearance normal, both eyes and all related structures Neck Neck: Yes no lymphadenopathy and Yes supple Resp Effort & Inspection: normal respiratory effort Auscultation: clear to auscultation bilaterally Cardio Rhythm: regular rhythm Heart sounds: S1 normal heart sound present and S2 normal heart sound present GI Inspection: Yes normal to inspection Palpation (GI): Soft to palpation Percussion: Yes normal to percussion Auscultation: normal bowel sounds Coding Level of Care Code Est Pt Prev Care 40-64y(99320) Diagnoses HTN (hypertension) I10 Annual physical exam Z00.00 Chronic anxiety F41.9 H/O colonoscopy Z98.890 Allergic rhinitis due to animal (cat) (dog) hair and dander J30.81 Additional Codes BELEN-7 Assessment Billing - BELEN-7 Assessment Tool: BELEN-7 Assessment 01227 ([id number]) PHQ-9 - 86560 - PHQ-9 Billing: Yes ([id number]) Assessment & Plan Assessment & Plan (1) HTN (hypertension): Code(s): I10 - Essential (primary) hypertension Category: Medical Plan: Add 40 mg of valsartan to 80 mg continue nifedipine follow-up in 2 months (2) Annual physical exam: Code(s): Z00.00 - Encounter for general adult medical examination without abnormal findings Category: Medical Plan: Well-balanced diet regular exercise discussed with the patient she is up-to-date with mammogram at [facility] and colonoscopy, due for repeat in January because of family history (3) Chronic anxiety: Code(s): F41.9 - Anxiety disorder, unspecified Category: Medical Plan: Continue 25 mg of sertraline (4) H/O colonoscopy: Comment: negative 08/2013, negative by Dr. Krause 01/2020, recheck 5 yrs ( FHx colon polyps sister) Code(s): Z98.890 - Other specified postprocedural states Category: Surgical Plan: Follow-up with GI (5) Allergic rhinitis due to animal (cat) (dog) hair and dander: Code(s): J30.81 - Allergic rhinitis due to animal (cat) (dog) hair and dander Category: Medical Plan: Patient will start Zyrtec and use albuterol as needed for wheezing. She will follow-up in 2 months if she has to use albuterol more than twice a week inhaled steroid will be started Orders: Orders Basic Metabolic Panel 2 Weeks I10 - Essential (primary) hypertension Medications: New sertraline 25 mg PO DAILY 90 tabs 3RF ProAir RespiClick 90 mcg/actuation (albuterol sulfate) 2 inhalations inhalation Q6H PRN 1 ea 3RF shortness of breath or wheezing NS valsartan take with Valsartan 80 mg 40 mg PO DAILY 90 tabs 1RF Discontinued sertraline Discontinued Reason: Doctor's Order 50 mg PO DAILY 90 tabs 2RF
[2024-05-18 08:34] VITALS: BP 138/80; PULSE 52; RESP 18; TEMP 36.9; O2SAT 98; BMI 23.5
== END 2024-05-18 09:22 | disposition home or self-care (01) ==
LOC: HO.HMCC 08:32
PROVIDERS: PCP Internal Medicine; Visit Provider Internal Medicine
DX: I10 Essential (primary) hypertension (principal); Z00.00 Encounter for general adult medical examination without abnormal findings; F41.9 Anxiety disorder, unspecified; Z98.890 Other specified postprocedural states; J30.81 Allergic rhinitis due to animal (cat) (dog) hair and dander

== ENCOUNTER → 2024-05-18 08:31 | Outpatient (BNVA) | payer OTHER, SELFPAY | PROVIDERS: PCP Internal Medicine; Visit Provider Internal Medicine | DX: Z00.00 Encounter for general adult medical examination without abnormal findings (principal); I10 Essential (primary) hypertension; F41.9 Anxiety disorder, unspecified; J30.81 Allergic rhinitis due to animal (cat) (dog) hair and dander; Z79.899 Other long term (current) drug therapy; Z98.890 Other specified postprocedural states | CPT/HCPCS: 96127 ==

== ENCOUNTER 2024-06-29 07:48 | Outpatient (REF) | payer OTHER, SELFPAY ==
[2024-06-29 10:24] LABS: Anion Gap 11 (12-20); Blood Urea Nitrogen 18 mg/dL (9-16); Carbon Dioxide 27 mmol/L (22-29); Chloride 104 mmol/L (96-108); Estimated Glomerular Filt Rate > 60; Glucose Random 88 mg/dL (60-115); Sodium 138 mmol/L (135-145)
== END 2024-06-29 07:49 | disposition home or self-care (01) ==
LOC: HO.HMGCLDS 07:48
PROVIDERS: PCP Internal Medicine; Visit Provider Internal Medicine
DX: I10 Essential (primary) hypertension (principal)
CPT/HCPCS: 36415; 80048

== ENCOUNTER 2024-07-20 09:05 | Outpatient (AMB) | payer OTHER, SELFPAY ==
[2024-07-20 09:19] VITALS: BP 128/80; PULSE 70; O2SAT 98; BMI 23.5
--- NOTE | 2024-07-20 09:19 | A.OFFPC_ITS ---
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 Accompanied by: Self / Same As Patient Allergies penicillamine Adverse Reaction (Unknown, Verified 07/20/24 09:19) headache, hydrochlorothiazide Adverse Reaction (Verified 07/20/24 09:19) hyponatremia Medication List - Last Reconciled 07/20/24 by Carol Dewitt MD levothyroxine 75 mcg PO DAILY nifedipine ER 30 mg PO DAILY ProAir RespiClick 90 mcg/actuation (albuterol sulfate) 2 inhalations inhalation Q6H PRN NS sertraline 25 mg PO DAILY valsartan 80 mg PO DAILY valsartan 40 mg PO DAILY Tobacco use date assessed: 05/18/24 Dental Screening Dental Screen Date: 05/18/24 HPI 2 months f/up HPI Details Patient presents for the follow-up on hypertension hypothyroidism stable on current medications. [facility] Medical History Normal pelvic exam Normal breast exam Renal angiolipoma Elevated AST (SGOT) Palpitations Vitamin D deficiency Postmenopausal Annual physical exam Panic attack Chronic anxiety Hypothyroidism HTN (hypertension) Surgical History H/O colonoscopy Family History Father No problems noted. Mother No problems noted. Sister No problems noted. 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 Current occupational exposures/hazards: No Cognitive needs: No Hearing needs: Yes Vision needs: Yes Questionnaire Thrive Questionnaire Date Thrive assessed: 07/20/24 I am a: Patient What is your living situation today?: I have a steady place to live Within the past 12 months, did the food you bought not last and you didn't have the money to get more?: Never true Within the past 12 months, did you worry whether your food would run out before you got money to buy more?: Never true Do you have trouble paying for medicines?: No Do you have trouble getting transportation to medical appointments?: No Do you have trouble paying your heating and electricity bill?: No Do you have trouble taking care of your child, family member or friend?: No Do you have trouble with day-to-day activities such as bathing, preparing meals, shopping, managing finances, etc.?: No Are you currently unemployed and looking for a job?: No Are you interested in more education?: No Please select the resources that you would like help with: None Currently or been in a relationship where the following occur: No concerns reported THRIVE Score: 0 BELEN-7 AMB Questionnaire BELEN-7 Date BELEN - 7 assessed: 05/18/24 Source: Developed by Drs. Yusuf Palacios, Jennifer Rivera, Toi Figueroa and colleagues, with an educational clyde from [employer]. Review of Systems Const All systems reviewed & are unremarkable except as noted in HPI and below ENT Reports no additional complaints Card Reports no additional complaints Resp Reports no additional complaints GI Reports no additional complaints Reports no additional complaints Physical exam (Primary Care) Vital Signs: Last Vital Signs Pulse 70 07/20/24 09:19 BP 128/80 07/20/24 09:19 Pulse Ox 98 07/20/24 09:19 Oxygen Delivery Method Room Air 07/20/24 09:19 BMI result Body Mass Index 23.5 Tobacco/Smoking Status: Tobacco use Status Tobacco use date assessed 05/18/24 07/20/24 09:20 Patient Tobacco Use Status Former Tobacco user 07/20/24 09:20 e-Cigarette/Vaping Use Never Used 07/20/24 09:20 Thrive Assessment: Date of Thrive Assessment Date Thrive assessed 07/20/24 07/20/24 09:20 Currently or been in a relationship where the following occur: No concerns reported Const General: no acute distress Eyes General: appearance normal, both eyes and all related structures Neck Neck: Yes supple Resp Effort & Inspection: normal respiratory effort Auscultation: clear to auscultation bilaterally Cardio Rhythm: regular rhythm Heart sounds: S1 normal heart sound present and S2 normal heart sound present Coding Level of Care Code Est Pt Level 3 (94704) Diagnoses HTN (hypertension) I10 Hypothyroidism E03.9 Assessment & Plan Assessment & Plan (1) HTN (hypertension): Code(s): I10 - Essential (primary) hypertension Category: Medical Plan: Continue current medications (2) Hypothyroidism: Code(s): E03.9 - Hypothyroidism, unspecified Category: Medical Plan: Continue levothyroxine follow-up in 4 months Orders: Orders Comprehensive [place]. Panel Fast 4 Months I10 - Essential (primary) hypertension Medications: Changed From valsartan 80 mg PO DAILY 90 tabs 1RF To valsartan take it with Valsartan 40 mg 80 mg PO DAILY 90 tabs 3RF Refilled nifedipine ER 30 mg PO DAILY 90 tabs 3RF valsartan take with Valsartan 80 mg 40 mg PO DAILY 90 tabs 3RF
== END 2024-07-20 10:05 | disposition home or self-care (01) ==
LOC: HO.HMCC 09:05
PROVIDERS: PCP Internal Medicine; Visit Provider Internal Medicine
DX: I10 Essential (primary) hypertension (principal); E03.9 Hypothyroidism, unspecified

== ENCOUNTER → 2024-07-20 09:05 | Outpatient (BNVA) | payer OTHER, SELFPAY | PROVIDERS: PCP Internal Medicine; Visit Provider Internal Medicine | DX: Z13.89 Encounter for screening for other disorder (principal) ==

== ENCOUNTER 2024-10-24 07:56 | Outpatient (AMB) | payer OTHER, SELFPAY ==
--- OUTSIDE RECORDS SUMMARY | 2024-10-24 07:59 | XMS_ITS | Clinical Summary ---
Author Organization [facility] Address [address] [place] [id number] Phone Care Team Providers Care Weighter Name Role Phone Unknown, Unknown Primary Care Provider Andreea lable Allergies Active Allergy Reactions Criticality Noted Date Comments Penicillins GI Upset 08/16/2019 Medications NIFEdipine (ADALAT CC) 30 MG 24 hr tablet Take 30 mg by mouth daily. Active levothyroxine (TIROSINT) 50 mcg Cap 50 mcg daily. Active ascorbic acid (VITAMIN C ORAL) Take by mouth. Active b complex vitamins capsule Take 1 capsule by mouth daily. Active omega 0-lih-gqm-fish oil 1,000 mg (120 mg-180 mg) Cap Take 1 capsule by mouth daily. Active multivit with minerals/lutein (MULTIVITAMIN 50 PLUS ORAL) Take by mouth. Active calcium carbonate (CALCIUM 500 ORAL) Take by mouth. Active Active Problems Problem Noted Date Diagnosed Date Postmenopausal bleeding 08/16/2019 Overview (08/22/2019): 08/16/19 - ENDOMETRIUM, BIOPSY: Inactive/atrophic endometrium with diffuse breakdown. Negative for a polyp and hyperplasia. Assessment & Plan (08/16/2019 9:40 AM EDT): Discussed with patient possible etiologies of postmenopausal bleeding including but not limited to atrophy, endometrial polyp, hyperplasia, carcinoma. Discussed with patient proceeding with endometrial biopsy and Pap smear. Possible need for pelvic ultrasound discussed. Patient's bleeding and symptoms seem most consistent with hormonal etiology. Will call patient with results and follow-up. Immunizations Immunization Administration Dates Next Due Influenza Quadrivalent MDCK Preservative Free IM 12/09/2017 Influenza Quadrivalent Preservative Free IM 11/28 Tdap 07/04/2012 Family History Medical History Relation Comments Cancer Father Prostate cancer Father Hypertension Mother Thyroid disease Mother Relation Status Comments Father Mother Alive Sister Alive Social History Tobacco Use Types Packs/Day Years Used Date Smoking Tobacco: Former Smokeless Tobacco: Never Alcohol Use Standard Drinks/Week Comments Yes 0 (1 standard drink = 0.6 oz pur e alcohol) Education Answer Date Recorded Are you interested in more education? Not on lewis e 06/25/2022 Are you concerned about learning? Not on file 06/25/2022 No 06/25/2022 No 06/25/2022 Digital Access Answer Date Recorded No 07/24/2022 No 07/24/2022 No 07/24/2022 Reliable internet access at home? Not on file 07/24/2022 Device with a working camera? 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 Not on file Not on file Not on file Last Filed Vital Signs Vital Sign Reading Time Taken Comments Blood Pressure - - Pulse - - Temperature - - Respiratory Rate - - Oxygen Saturation - - Inhaled Oxygen Concentration - - Weight 66.7 kg (147 lb) 08/16/2019 8:58 AM EDT Height 165.1 cm (5' 5 ) 08/16/2019 8:58 AM EDT Body Mass Index 24.46 08/16/2019 8:58 AM EDT Plan of Treatment Health Maintenance Due Date Last Done Comments LIPID PANEL 1965 TSH LEVEL 1965 DEPRESSION SCREENING 1975 SMOKING Hx and SMOKELESS TOBACCO SCREENING 06/02/1976 HEPATITIS C SCREENING 06/02/1981 HIV ONE-TIME SCREENING (18-65 YEARS) 06/02/1981 MAMMOGRAM 2003 COLOGUARD 06/02/2008 COLONOSCOPY 06/02/2008 COLORECTAL CANCER SCREENING 06/02/2008 FIT TEST 06/02/2008 FOBT 06/02/2008 SIGMOIDOSCOPY 06/02/2008 VIRTUAL COLONOSCOPY 06/02/2008 PNEUMOCOCCAL VACCINES (50+ years) (1 of 1 - PCV) 06/02/2013 ZOSTER VACCINES (1 of 2) 06/02/2013 Adult Td,Tdap Booster 07/04/2022 07/04/2012 PAP SMEAR 08/15/2022 08/16/2019, 07/29, 08/03/2016, Additional history exists COVID-19 VACCINE (3 - 2023- season) 2023 04/01/2020, 03/04/2020 RSV VACCINE (1 - 1-dose 75+ series) 06/02/2038 HEPATITIS A VACCINES Aged Out No long er eligible based on patient's age to complete this topic HIB VACCINES Aged Out No longer eligi ble based on patient's age to complete this topic MENINGOCOCCAL VACCINES (ACWY) Aged Out No longer eligible based on patient's age to complete this topic MENINGOCOCCAL VACCINES (B) Aged Out N o longer eligible based on patient's age to complete this topic Medical Devices Not on file Procedures Procedure Name Priority Date/Time Associated Diagnosis Comments PAP TEST Routine 08/16/2019 12:00 AM EDT from Last 3 Months or Most Recently Relevant to Health Maintenance Results * Pap Smear (08/16/2019 12:00 AM EDT) 08/16/2019 08/23/2019 9:3 7 AM EDT Narrative SEE NARRATIVE - 08/27/2019 2:11 PM EDT [address] [id number] Finance Professor: Catie Cordova MD BUILDING OFFICIAL Cytology Report FINAL DIAGNOSIS A. PAP SMEAR (SUREPATH) CE: SPECIMEN ADEQUACY: Satisfactory for evaluation; transformation zone present. INTERPRETATION: NEGATIVE FOR INTRAEPITHELIAL LESION OR MALIGNANCY. Electronically Signed Out By: John Thornton MD By his/her signature above, the pathologist listed as making the Final Diagnosis certifies that he/she has personally reviewed this case and confirmed or corrected the diagnosis. The Pap test is a screening test primarily for squamous cancers and precursors and has associated false-negative and false-positive results. New technologies such as liquid-based preparations may decrease but will not eliminate all false-negative results. Regular sampling and follow-up of unexplained clinical signs and symptoms are recommended to minimize false negative results. PROCEDURES/ADDENDA HPV Testing (Requested) Ordered Date: 08/23/2019 A. PAP SMEAR (SUREPATH) CE: Human Papilloma Virus Test Negative for high-risk human papillomavirus types 16, 18, 45 and the Other high risk probe set (Includes 31, 33, 35, 39, 51, 52, 56, 58, 59, 66, 68) by [employer] Onclarity HR-HPV analysis. Clinical correlation is advised. This HPV test was performed at [facility], [address] [place] [address]. This test has been FDA approved for SurePath cervical cytology specimens. The accuracy and precision of this test for all other specimen sources has been verified in the Cytopathology Laboratory of the [facility] and has not been cleared or approved by the U.S. Food and Drug Administration. Clinical correlation is advised. CLINICAL HISTORY Date of Last Menstrual Period: 08-08-19 Menstrual History: Post Menopausal Bleeding, PM Other Clinical Conditions: Screening Pap SPECIMEN SOURCE A: PAP SMEAR (SUREPATH) CE Patient Name: BLANCA, HEBER : 1965 (Age: 54) Sex: F Institution: [facility] Location: [facility] Date of Collection: 08/16/2019 Date of Reported: 08/24/2019 14:29 Results to: Brooklynn Neumann MD Brooklynn Neumann MD CYTOLOGY ORDERABLES Edited Result - Final SEE NARRATIVE from Last 3 Months or Most Recently Relevant to Health Maintenance Insurance HMO O O O HMO O HMO HMO [facility] H[facility] Care Teams Weighter Relationship Specialty Start Date End Date Unknown, Unknown, PCP - General 05/04/19 Additional Source Comments The information contained in this document represents components of the legal health record. It is not the complete legal health record.[facility]
--- NOTE | 2024-10-24 08:08 | MHC.PC.OV ---
Vital Signs 10/24/24 08:09 Height 5 ft 5 in Weight 139 lb BMI 23.1 BP 128/80 Blood Pressure Location Lt brachial Position Sitting Respiration 16 Pulse 62 Pulse Source Pulse Oximeter Pulse Oximetry (%) 100 Oxygen Delivery Method Room Air Intake Visit Reasons: 4 months f/up Epic Cupid Analyst Required: No Accompanied by: Self / Same As Patient Allergies penicillamine Adverse Reaction (Unknown, Verified 07/20/24 09:19) headache, hydrochlorothiazide Adverse Reaction (Verified 07/20/24 09:19) hyponatremia Medication List - Last Reconciled 10/24/24 by Carol Dewitt MD levothyroxine 75 mcg PO DAILY nifedipine ER 30 mg PO DAILY ProAir RespiClick 90 mcg/actuation (albuterol sulfate) 2 inhalations inhalation Q6H PRN NS sertraline 25 mg PO DAILY valsartan 80 mg PO DAILY valsartan 40 mg PO DAILY Tobacco use date assessed: 10/24/24 Dental Screening Dental Screen Date: 10/24/24 Did you have a dental visit in the last 12 months?: Yes Did you have a dental problem in the last 6 months where you did not have access to dental care?: No Was dental information given to patient?: Patient has dentist HPI 4 months f/up HPI Details Pt presents for follow-up of HTN, hypothyroid stable on current medications PFSH Medical History Normal pelvic exam Normal breast exam Renal angiolipoma Elevated AST (SGOT) Palpitations Vitamin D deficiency Postmenopausal Annual physical exam Panic attack Chronic anxiety Hypothyroidism HTN (hypertension) Surgical History H/O colonoscopy Family History Father No problems noted. Mother No problems noted. Sister No problems noted. 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 1. Little interest or pleasure in doing things: not at all 2. Feeling down, depressed, or hopeless: not at all 3. Trouble falling or staying asleep, or sleeping too much: not at all 4. Feeling tired or having little energy: not at all 5. Poor appetite or overeating: not at all 6. Feeling bad about yourself - or that you are a failure or have let yourself or your family down: not at all 8. Moving or speaking so slowly that other people could have noticed. Or the opposite - being so fidgety or restless that you have been moving around a lot more than usual: not at all 9. Thoughts that you would be better off or of hurting yourself in some way: not at all Depression Screening Interpretation: Negative Depression Screening Done: Yes 41046 - PHQ-9 Billing: Yes Source: Developed by Drs. Yusuf Palacios, Jennifer Rivera, Toi Figueroa and colleagues, with an educational clyde from [employer]. Thrive Questionnaire Date Thrive assessed: 05/11/24 I am a: Patient What is your living situation today?: I have a steady place to live Within the past 12 months, did the food you bought not last and you didn't have the money to get more?: Never true Within the past 12 months, did you worry whether your food would run out before you got money to buy more?: Never true Do you have trouble paying for medicines?: No Do you have trouble getting transportation to medical appointments?: No Do you have trouble paying your heating and electricity bill?: No Do you have trouble taking care of your child, family member or friend?: No Do you have trouble with day-to-day activities such as bathing, preparing meals, shopping, managing finances, etc.?: No Are you currently unemployed and looking for a job?: No Are you interested in more education?: No Please select the resources that you would like help with: None Currently or been in a relationship where the following occur: No concerns reported THRIVE Score: 0 BELEN-7 AMB Questionnaire BELEN-7 Date BELEN - 7 assessed: 05/18/24 Source: Developed by Drs. Yusuf Palacios, Jennifer Rivera, Toi Figueroa and colleagues, with an educational clyde from [employer]. Review of Systems Const All systems reviewed & are unremarkable except as noted in HPI and below Eyes Reports no additional complaints ENT Reports no additional complaints Card Reports no additional complaints Resp Reports no additional complaints GI Reports no additional complaints Reports no additional complaints Physical exam (Primary Care) Vital Signs: Last Vital Signs Pulse 62 10/24/24 08:09 Resp 16 10/24/24 08:09 BP 128/80 10/24/24 08:09 Pulse Ox 100 10/24/24 08:09 Oxygen Delivery Method Room Air 10/24/24 08:09 BMI result Body Mass Index 23.1 Tobacco/Smoking Status: Tobacco use Status Tobacco use date assessed 10/24/24 10/24/24 08:14 Patient Tobacco Use Status Former Tobacco user 10/24/24 08:14 e-Cigarette/Vaping Use Never Used 10/24/24 08:14 Depression Screening Interpretation: Negative Thrive Assessment: Date of Thrive Assessment Date Thrive assessed 05/11/24 10/24/24 08:14 Currently or been in a relationship where the following occur: No concerns reported Const General: no acute distress HENMT Head: Yes normal to inspection Throat: Yes posterior oropharynx normal Neck Neck: Yes supple Resp Effort & Inspection: normal respiratory effort Auscultation: clear to auscultation bilaterally Cardio Rhythm: regular rhythm Heart sounds: S1 normal heart sound present and S2 normal heart sound present GI Inspection: Yes normal to inspection Palpation (GI): Soft to palpation Percussion: Yes normal to percussion Auscultation: normal bowel sounds Coding Level of Care Code Est Pt Level 4 (21838) Diagnoses HTN (hypertension) I10 Hypothyroidism E03.9 Vitamin D deficiency E55.9 Additional Codes PHQ-9 - 95759 - PHQ-9 Billing: Yes ([id number]) Assessment & Plan Assessment & Plan (1) HTN (hypertension): Code(s): I10 - Essential (primary) hypertension Category: Medical Plan: Continue current medications (2) Hypothyroidism: Code(s): E03.9 - Hypothyroidism, unspecified Category: Medical Plan: Continue levothyroxine (3) Vitamin D deficiency: Code(s): E55.9 - Vitamin D deficiency, unspecified Category: Medical Plan: Continue vitamin-D Orders: Orders Comprehensive [place]. Panel Fast 6 Months E03.9 - Hypothyroidism, unspecified, E55.9 - Vitamin D deficiency, unspecified, E78.5 - Hyperlipidemia, unspecified, I10 - Essential (primary) hypertension, R00.2 - Palpitations Basic Metabolic Panel Today E03.9 - Hypothyroidism, unspecified, E55.9 - Vitamin D deficiency, unspecified, E78.5 - Hyperlipidemia, unspecified, I10 - Essential (primary) hypertension, R00.2 - Palpitations Vitamin D 25-OH Total 6 Months E03.9 - Hypothyroidism, unspecified, E55.9 - Vitamin D deficiency, unspecified, E78.5 - Hyperlipidemia, unspecified, I10 - Essential (primary) hypertension, R00.2 - Palpitations Complete Blood Count Auto Diff 6 Months E03.9 - Hypothyroidism, unspecified, E55.9 - Vitamin D deficiency, unspecified, E78.5 - Hyperlipidemia, unspecified, I10 - Essential (primary) hypertension, R00.2 - Palpitations TSH reflex Free T4 6 Months E03.9 - Hypothyroidism, unspecified, E55.9 - Vitamin D deficiency, unspecified, E78.5 - Hyperlipidemia, unspecified, I10 - Essential (primary) hypertension, R00.2 - Palpitations Lipid Panel 6 Months E03.9 - Hypothyroidism, unspecified, E55.9 - Vitamin D deficiency, unspecified, E78.5 - Hyperlipidemia, unspecified, I10 - Essential (primary) hypertension, R00.2 - Palpitations
[2024-10-24 08:09] VITALS: BP 128/80; PULSE 62; RESP 16; O2SAT 100; BMI 23.1
== END 2024-10-24 10:37 | disposition home or self-care (01) ==
LOC: HO.HMCC 07:57
PROVIDERS: PCP Internal Medicine; Visit Provider Internal Medicine
DX: I10 Essential (primary) hypertension (principal); E03.9 Hypothyroidism, unspecified; E55.9 Vitamin D deficiency, unspecified

== ENCOUNTER 2024-10-24 07:56 | Outpatient (REF) | payer OTHER, SELFPAY ==
[2024-10-24 10:31] LABS: Anion Gap 13 (12-20); Blood Urea Nitrogen 14 mg/dL (9-16); Calcium 9.1 mg/dL (8.4-10.2); Carbon Dioxide 27 mmol/L (22-29); Chloride 101 mmol/L (96-108); Estimated Glomerular Filt Rate > 60; Potassium 4.6 mmol/L (3.3-5.1); Sodium 136 mmol/L (135-145)
== END 2024-10-24 07:57 | disposition home or self-care (01) ==
LOC: HO.HMGCLDS 07:56
PROVIDERS: PCP Internal Medicine; Visit Provider Internal Medicine
DX: I10 Essential (primary) hypertension (principal); E03.9 Hypothyroidism, unspecified; E55.9 Vitamin D deficiency, unspecified; E78.5 Hyperlipidemia, unspecified; R00.2 Palpitations
CPT/HCPCS: 36415; 80048; 96127

== ENCOUNTER 2025-01-28 07:41 | Outpatient (AMB) | payer OTHER, SELFPAY ==
--- OUTSIDE RECORDS SUMMARY | 2025-01-28 07:44 | XMS_ITS | Clinical Summary ---
Author Organization [facility] Address [address] [place] [phone] Phone Care Team Providers Care Mica Washer Gluer Name Role Phone Unknown, Unknown Primary Care [...] 1 capsule by mouth daily. Active omega 6-pix-itw-fish oil 1,000 mg (120 mg-180 mg) Cap [...] 08/15/2022 08/16/2019, 07/29, 08/03/2016, Additional history exists INFLUENZA VACCINE (#1) 2024 12/09/2017, 2016 COVID-19 VACCINE (3 - season) 2024 04/01/2020, 03/04/2020 RSV VACCINE (1 - 1-dose [...] SEE NARRATIVE - 08/27/2019 2:11 [place] [address] Battery Engineer: Catie Cordova MD FINANCIAL RECORDING CLERK Cytology Report FINAL DIAGNOSIS A. PAP SMEAR [...] 52, 56, 58, 59, 66, 68) by eSNF Onclarity HR-HPV analysis. Clinical correlation is advised. This HPV test was performed at [facility], [address] [place] [address]. This test has been FDA approved for [facility] cervical cytology specimens. The accuracy and precision of this test for all other specimen sources has been verified in the Cytopathology Laboratory of the [facility] and has not been cleared or approved by the U.S. Food and Drug Administration. Clinical correlation is advised. CLINICAL HISTORY Date of Last Menstrual Period: 08-08-19 Menstrual History: Post Menopausal Bleeding, PM Other Clinical Conditions: Screening Pap SPECIMEN SOURCE A: PAP SMEAR (SUREPATH) CE Patient Name: HEBER RIOS : 1965 (Age: 54) Sex: F Institution: [facility] Location: [facility] Date of Collection: 08/16/2019 Date of Reported: 08/24/2019 14:29 Results to: Brooklynn Neumann MD Brooklynn Neumann MD CYTOLOGY ORDERABLES Edited Result - Final SEE NARRATIVE from Last 3 Months or Most Recently Relevant to Health Maintenance Insurance [facility]MO [address] [place], [place] [address] [place], [place] [address] [place], [place] [address] Care Teams Mica Washer Gluer Relationship Specialty Start Date End Date Unknown, Unknown, PCP - General 05/04/19 Additional Source Comments The information contained in this document represents components of the legal health record. It is not the complete legal health record.[facility]
[2025-01-28 07:45] VITALS: BP 140/78; PULSE 53; TEMP 36.5; O2SAT 98; BMI 23.1
--- NOTE | 2025-01-28 07:45 | AM.OFFWIN_ITS ---
Intake Vital Signs 01/28/25 07:45 Height 5 ft 5 in Weight 139 lb BMI 23.1 BP 140/78 H Blood Pressure Location Lt brachial Position Sitting Pulse 53 Pulse Source Pulse Oximeter Temp 97.7 F Temp Source Oral Pulse Oximetry (%) 98 Oxygen Delivery Method Room Air Intake Visit Reasons: EP rash burning pain on shoulder headache tired Intake Note: Patient presents c/o rash, burning/stabbing pain on right collarbone, fatigue x5 days. Patient Tobacco Use Status: Former Tobacco user Allergies penicillamine Adverse Reaction (Unknown, Verified 01/28/25 07:47) headache, hydrochlorothiazide Adverse Reaction (Verified 01/28/25 07:47) hyponatremia Do you need a note to return to daycare/school/sports/work: Yes HPI HPI Comments History of Present Illness Details History - The patient is a 59 year old individua l presenting with a rash and pain. - For approximately four days prior to t he visit, the patient experienced unusual sensations and bizarre, intense pain in the back, neck, shoulder, and arm, with radiation to the ear. - The patient also reported pain in the right ear. - A rash appeared on one side of the bod y yesterday. - She has never had this rash in the pas t. - She denies new foods, lotions, soaps, detergents, medications, pets, clothes, perfumes, or travel. - She denies joint pain, CP, SOB, fever, chills, or other rashes. Physical Exam General: Cooperative, healthy appearing, comfortable, no acute distress and well developed Orientation: Patient oriented x3 Limitations: No limitations Neck: Normal visual inspection and Yes full ROM Respiratory: Normal respiratory effort and able to speak in complete sentences. Clear to auscultation bilaterally. No w/r/r noted. Cardiovascular: RRR, no m/r/g noted. Normal S1 and S2 Skin: Raised, erythematous, non-tender, dry cluster noted on the right anterior shoulder and neck in the C5 dermatome. Patient was informed and verbally consented to the use of an ambient scribe for clinic note documentation during this visit [facility] Medical History Normal pelvic exam Normal breast exam Renal angiolipoma Elevated AST (SGOT) Palpitations Vitamin D deficiency Postmenopausal Annual physical exam Panic attack Chronic anxiety Hypothyroidism HTN (hypertension) Surgical History H/O colonoscopy Family History Father No problems noted. Mother No problems noted. Sister No problems noted. 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 Current occupational exposures/hazards: No Cognitive needs: No Hearing needs: Yes Vision needs: Yes Review of Systems Const All systems reviewed & are unremarkable except as noted in HPI and below Physical Exam Vital Signs: Last Vital Signs Temp 97.7 F 01/28/25 07:45 Pulse 53 01/28/25 07:45 BP 140/78 H 01/28/25 07:45 Pulse Ox 98 01/28/25 07:45 Oxygen Delivery Method Room Air 01/28/25 07:45 BMI result Body Mass Index 23.1 Assessment & Plan Assessment & Plan (1) Rash: Code(s): R21 - Rash and other nonspecific skin eruption Plan Plan - The patient was diagnosed with herpes zoster (shingles) based on the characteristic history of pain followed by a dermatomal rash. - Prescribed Valacyclovir to be started today for one week to shorten the course of the illness. - Prescribed prednisone to be started today to help with pain and inflammation. - Recommended [id number]-[id number] analgesics such as Tylenol and Motrin, which can be alternated for pain management. - The patient was advised to keep the rash covered. Medications: New valacyclovir 1,000 mg PO Q8H 21 tabs 0RF 7 days prednisone 40 mg (2 x 20 mg) PO DAILY 10 tabs 0RF 5 days Coding Level of Care Code Est Pt Level 3 (52508) Diagnoses Rash R21
== END 2025-01-28 08:36 | disposition home or self-care (01) ==
PROVIDERS: PCP Internal Medicine; Visit Provider Physician Assistant Medical
DX: R21 Rash and other nonspecific skin eruption (principal)